=== PATIENT | female | born 1965 | race Caucasian/White ===

== ENCOUNTER 2016-08-07 21:28 | Inpatient (IN) ==
[2016-08-07] MEDS ORDERED: methylPREDNISolone 125 MG/2 ML VIAL IV ONE (21:47)
[2016-08-07] MEDS ORDERED: Ipratropium/Albuterol Neb 3 ML IH ONE (21:47)
[2016-08-07] MEDS ORDERED: Aspirin 325 MG TABLET PO ONE (21:48)
--- NOTE | 2016-08-07 21:52 | Emergency Department Note ---
Disposition Clinical Impression: Acute exacerbation of chronic obstructive airways disease, Community acquired pneumonia, Hypoxia Disposition: Admitted As Inpatient Condition: Good Forms: ED Satisfaction Letter Time of Disposition: 00:26 SOB HPI - General Chief Complaint: ED Shortness of Breath/Dyspnea Stated Complaint: "Poss. Pneumonia/SOB" Time Seen by Provider: 08/07/16 21:46 Source: patient Mode of arrival: ambulatory Limitations: no limitations Nursing Notes Reviewed: Yes Vital Signs Reviewed: Yes - History of Present Illness This is a 50-year-old female presents who presents with increased shortness of breath and cough. Patient states she has been sick for a few days now. Patient wears 2 L of oxygen at night but is not wearing oxygen during the day. Patient is a smoker and does have COPD. Patient does not have a history of CHF or any cardiac stents placed. Patient has been running a fever as well. Patient states her chest feels tight and the pain from her ribs goes into her back. Pt Subjective Complaint: shortness of breath, cough, pain with inspiration Onset (ago): day(s) Severity: moderate Consistency/Duration: constant - Related Data Previous Rx's Medication Instructions Recorded Dicyclomine [Bentyl] 20 mg PO BID #20 capsule 01/02/15 Ondansetron ODT [Zofran ODT] 4 mg SL Q6HR #20 tab.rapdis 01/02/15 Allergies Allergy/AdvReac Type Severity Reaction Status Date / Time naproxen [From Aleve] AdvReac Hives Verified 08/07/16 21:35 All systems ED: reviewed and negative except as stated. Constitutional: Denies: fever, chills, weakness, weight change Eyes: Denies: eye pain, eye discharge, vision change ENT ED: Denies: ear pain, throat pain, dental pain, hearing loss, epistaxis, congestion, dysphagia Cardiovascular: Reports: chest pain. Denies: palpitations, dyspnea on exertion , edema, syncope Respiratory: Reports: cough, dyspnea, wheezes. Denies: hemoptysis, stridor Gastrointestinal: Denies: abdominal pain, nausea, vomiting, diarrhea, constipation, hematemesis, melena, hematochezia Genitourinary: Denies: dysuria, frequency, hematuria, discharge Musculoskeletal: Denies: back pain, neck pain, arthralgia, myalgia Integumentary: Denies: rash, abrasion, lesions Neurological: Denies: headache, weakness, numbness, paresthesias, confusion, abnormal gait, vertigo Psychiatric: Denies: anxiety, depression, suicidal thoughts, homicidal thoughts , auditory hallucinations, visual hallucinations Endocrine: Denies: fatigue Hematological/Lymphatic: Denies: easy bleeding, easy bruising Allergic/Immunologic: Denies: facial swelling, urticaria Past Medical History - Past Medical History Attestation: Yes The following information was validated with the patient. Source: patient Medical history: Reports: asthma, COPD, GERD, other Surgical history: Reports: other Psychiatric history: Reports: anxiety, depression - Social History Smoking Status: Current every day smoker Alcohol use: Reports: none Drug use: Reports: none Physical Exam - General Limitations: no limitations General appearance: alert, in no apparent distress - Head Head exam: atraumatic, normocephalic, normal inspection - Eye Eye exam: Present: normal appearance, PERRL, EOMI - ENT ENT exam: normal exam, normal oropharynx, mucous membranes moist - Expanded ENT Exam External ear exam: Present: normal external inspection Mouth exam: Present: normal external inspection Teeth exam: Present: normal inspection Throat exam: Present: normal inspection - Neck Neck exam: Present: normal inspection, full ROM, trachea midline - Chest Chest inspection: Present: normal inspection, symmetric chest wall rise - Respiratory Respiratory exam: Present: wheezes, other (rhonchi) - Cardiovascular Cardiovascular exam: Present: normal rhythm, tachycardia, normal heart sounds - Abdominal Exam Abdominal exam: Present: soft, Non-Tender. Absent: tenderness, distention, guarding, rebound, rigidity - Extremities Exam Extremities exam: Present: normal inspection, full ROM. Absent: tenderness, pedal edema - Expanded Upper Extremity Exam Shoulder exam: Present: normal inspection, full ROM Arm exam: Present: normal inspection, full ROM Elbow exam: Present: normal inspection, full ROM Forearm/Wrist exam: Present: normal inspection, full ROM Hand exam: Present: normal inspection, full ROM Vascular exam: Normal: capillary refill, radial pulse - Expanded Lower Extremity Exam Hip/Pelvis exam: Present: normal inspection, full ROM Upper leg exam: Present: normal inspection, full ROM Knee exam: Present: normal inspection, full ROM Lower leg exam: Present: normal inspection, full ROM Ankle exam: Present: normal inspection, full ROM Foot/toe exam: Present: normal inspection, full ROM Neurovascular/Tendon exam: Absent: motor deficit, sensory deficit, tendon deficit - Back Exam Back exam: Present: normal inspection, full ROM. Absent: tenderness - Neurological Exam Neurological exam: Present: alert, oriented X3 - Expanded Neurological Exam Patient oriented to: Present: person, place, time Coma Scale Eye Opening: Spontaneous Coma Scale Motor Response: Obeys Commands Coma Scale Verbal Response: Oriented Coma Scale Total: 15 - Psychiatric Psychiatric exam: Present: normal affect, normal mood - Skin Skin exam: Present: warm, dry, intact, normal color Course - Consultations Consultation #1: I spoke with Dr. John hayden to admit. Time: 00:26 Vital Signs Temperature 103.1 F H 08/07/16 21:31 Pulse Rate 134 08/07/16 21:31 Respiratory Rate 30 08/07/16 21:31 Blood Pressure 125/85 08/07/16 21:31 O2 Sat by Pulse Oximetry 93 L 08/07/16 21:31 Temperature 103.1 F H 08/07/16 21:31 Pulse Rate 134 08/07/16 21:31 Respiratory Rate 18 08/07/16 23:40 Blood Pressure 125/85 08/07/16 21:31 O2 Sat by Pulse Oximetry 97 08/07/16 23:40 Oxygen Delivery Oxygen Delivery Nasal Cannula Shortness of Breath/Dyspnea - Medical Records Medical records reviewed: Yes I reviewed the patient's medical records. - Lab Data Lab results reviewed: Yes I reviewed the patient's lab results. Result diagrams: 08/07/16 22:11 08/07/16 22:11 Lab Results 08/07/16 08/07/16 08/07/16 Range/Units 22:11 22:11 22:11 WBC 6.9 (4.3-11.1) K/mcL RBC 4.57 (3.82-4.97) M/mcL Hgb 13.3 (11.5-15.4) g/dL Hct 41.8 (35.3-44.9) % MCV 91.5 (83.0-100.0) fL MCH 29.1 (28.0-33.3) pg MCHC 31.8 (31.6-35.5) g/dL RDW 13.1 (11.5-14.5) % Plt Count 200 (140-400) K/mcL MPV 10.1 (9.4-12.4) fL Immature Gran % 0.3 (0-4) % Seg Neutrophils % 74.4 % Lymphocytes % 17.5 % Monocytes % 7.5 % Eosinophils % 0.0 % Basophils % 0.3 % Neutrophils # 5.2 (1.6-8.9) K/mcL Lymphocytes # 1.2 (0.6-4.6) K/mcL Monocytes # 0.5 (0.0-1.3) K/mcL Eosinophils # 0.0 (0.0-0.6) K/mcL Basophils # 0.0 (0.0-0.2) K/mcL Immature Plt Fraction 3.1 (1.1-6.1) % PT 12.4 H (9.4-12.1) Seconds INR 1.1 APTT 36.0 (26.0-36.0) Seconds D-Dimer 703 H (0-500) ng/mLFEU ABG pH (7.32-7.45) pH Units ABG pCO2 (35-45) mmHg ABG pO2 (85-104) mmHg ABG HCO3 (21-27) mEQ/L ABG Total CO2 (20-26) mEq/L ABG O2 Saturation (95-98) % ABG Base Excess (-2.0 to 3.0) mEq/L Blood Gas Modality Inspired O2 % Sodium 138 (136-145) mEq/L Potassium 3.5 (3.5-4.5) mEq/L Chloride 101 (98-109) mEq/L Carbon Dioxide 26 (19-29) mEq/L BUN 14 (7-20) mg/dL Creatinine 0.80 (0.57-1.11) mg/dL Est GFR ( Amer) > 60 (> 60) Est GFR (Non-Af Amer) > 60 (> 60) BUN/Creatinine Ratio 18 (6-26) Glucose 106 H (70-99) mg/dL Calculated Osmolality 287 (280-300) Lactic Acid (0.5-2.2) mmol/L Calcium 9.0 (8.6-10.8) mg/dL Troponin I (0-0.03) ng/mL B-Natriuretic Peptide (0-100) pg/mL 08/07/16 08/07/16 08/07/16 Range/Units 22:11 22:11 22:11 WBC (4.3-11.1) K/mcL RBC (3.82-4.97) M/mcL Hgb (11.5-15.4) g/dL Hct (35.3-44.9) % MCV (83.0-100.0) fL MCH (28.0-33.3) pg MCHC (31.6-35.5) g/dL RDW (11.5-14.5) % Plt Count (140-400) K/mcL MPV (9.4-12.4) fL Immature Gran % (0-4) % Seg Neutrophils % % Lymphocytes % % Monocytes % % Eosinophils % % Basophils % % Neutrophils # (1.6-8.9) K/mcL Lymphocytes # (0.6-4.6) K/mcL Monocytes # (0.0-1.3) K/mcL Eosinophils # (0.0-0.6) K/mcL Basophils # (0.0-0.2) K/mcL Immature Plt Fraction (1.1-6.1) % PT (9.4-12.1) Seconds INR APTT (26.0-36.0) Seconds D-Dimer (0-500) ng/mLFEU ABG pH (7.32-7.45) pH Units ABG pCO2 (35-45) mmHg ABG pO2 (85-104) mmHg ABG HCO3 (21-27) mEQ/L ABG Total CO2 (20-26) mEq/L ABG O2 Saturation (95-98) % ABG Base Excess (-2.0 to 3.0) mEq/L Blood Gas Modality Inspired O2 % Sodium (136-145) mEq/L Potassium (3.5-4.5) mEq/L Chloride (98-109) mEq/L Carbon Dioxide (19-29) mEq/L BUN (7-20) mg/dL Creatinine (0.57-1.11) mg/dL Est GFR ( Amer) (> 60) Est GFR (Non-Af Amer) (> 60) BUN/Creatinine Ratio (6-26) Glucose (70-99) mg/dL Calculated Osmolality (280-300) Lactic Acid 0.8 (0.5-2.2) mmol/L Calcium (8.6-10.8) mg/dL Troponin I 0.00 (0-0.03) ng/mL B-Natriuretic Peptide 11 (0-100) pg/mL 08/07/16 Range/Units 23:44 WBC (4.3-11.1) K/mcL RBC (3.82-4.97) M/mcL Hgb (11.5-15.4) g/dL Hct (35.3-44.9) % MCV (83.0-100.0) fL MCH (28.0-33.3) pg MCHC (31.6-35.5) g/dL RDW (11.5-14.5) % Plt Count (140-400) K/mcL MPV (9.4-12.4) fL Immature Gran % (0-4) % Seg Neutrophils % % Lymphocytes % % Monocytes % % Eosinophils % % Basophils % % Neutrophils # (1.6-8.9) K/mcL Lymphocytes # (0.6-4.6) K/mcL Monocytes # (0.0-1.3) K/mcL Eosinophils # (0.0-0.6) K/mcL Basophils # (0.0-0.2) K/mcL Immature Plt Fraction (1.1-6.1) % PT (9.4-12.1) Seconds INR APTT (26.0-36.0) Seconds D-Dimer (0-500) ng/mLFEU ABG pH 7.34 (7.32-7.45) pH Units ABG pCO2 55 H (35-45) mmHg ABG pO2 70 L (85-104) mmHg ABG HCO3 29.7 H (21-27) mEQ/L ABG Total CO2 31.4 H (20-26) mEq/L ABG O2 Saturation 93 L (95-98) % ABG Base Excess 2.8 (-2.0 to 3.0) mEq/L Blood Gas Modality [place] Inspired O2 40 % Sodium (136-145) mEq/L Potassium (3.5-4.5) mEq/L Chloride (98-109) mEq/L Carbon Dioxide (19-29) mEq/L BUN (7-20) mg/dL Creatinine (0.57-1.11) mg/dL Est GFR ( Amer) (> 60) Est GFR (Non-Af Amer) (> 60) BUN/Creatinine Ratio (6-26) Glucose (70-99) mg/dL Calculated Osmolality (280-300) Lactic Acid (0.5-2.2) mmol/L Calcium (8.6-10.8) mg/dL Troponin I (0-0.03) ng/mL B-Natriuretic Peptide (0-100) pg/mL - Radiology Data Radiology results reviewed: Yes I reviewed the patient's radiology results. - EKG Data EKG attestation: Yes I reviewed and interpreted this EKG. EKG shows normal: Reports: sinus rhythm Rate: Reports: tachycardia (117) Rhythm: Reports: NSR Vancleve/QRS: Reports: normal Interpretation: Reports: no acute changes, normal EKG
[2016-08-07 22:23] LABS: Basophils % 0.3 %; Hematocrit 41.8 % (35.3-44.9); Hemoglobin 13.3 g/dL (11.5-15.4); Immature Granulocytes % 0.3 % (0-4); Immature Platelets 3.1 % (1.1-6.1); Lymphocytes # 1.2 K/mcL (0.6-4.6); Lymphocytes % 17.5 %; Mean Corpuscular HGB Conc 31.8 g/dL (31.6-35.5); Mean Corpuscular Hemoglobin 29.1 pg (28.0-33.3); Mean Corpuscular Volume 91.5 fL (83.0-100.0); Mean Platelet Volume 10.1 fL (9.4-12.4); Monocytes # 0.5 K/mcL (0.0-1.3); Monocytes % 7.5 %; Neutrophils # 5.2 K/mcL (1.6-8.9); Platelet Count 200 K/mcL (140-400); Red Blood Count 4.57 M/mcL (3.82-4.97); Red Cell Distribution Width 13.1 % (11.5-14.5); Segmented Neutrophils % 74.4 %
[2016-08-07 22:27] LABS: INR 1.1; Prothrombin Time 12.4 Seconds (9.4-12.1)
[2016-08-07 22:37] LABS: BUN/Creatinine Ratio 18 (6-26); Blood Urea Nitrogen 14 mg/dL (7-20); Carbon Dioxide 26 mEq/L (19-29); Chloride 101 mEq/L (98-109); Glucose 106 mg/dL (70-99); Osmolality,Calculated 287 (280-300); Potassium 3.5 mEq/L (3.5-4.5); Sodium 138 mEq/L (136-145); eGFR For African Americans > 60 (> 60); eGFR For Non-African Americans > 60 (> 60)
[2016-08-07 23:52] LABS: ABG Base Excess 2.8 mEq/L (-2.0 to 3.0); ABG HCO3 29.7 mEQ/L (21-27); ABG Oxygen Saturation 93 % (95-98); ABG PCO2 55 mmHg (35-45); ABG PH 7.34 pH Units (7.32-7.45); ABG PO2 70 mmHg (85-104); ABG TCO2 31.4 mEq/L (20-26)
[2016-08-07 23:53] LABS: Blood Gas FiO2 40 %
[2016-08-08] MEDS ORDERED: Levofloxacin 750 MG/150 ML 750 MG/150 ML BAG IVPB ONE (00:01)
[2016-08-08] MEDS ORDERED: *HR* OxyCODONE/APAP 10/325 TABLET PO ONE (01:28)
[2016-08-08] MEDS: 0.9 % Sodium Chloride 2,000 ML IV SCH (02:33)
[2016-08-08] MEDS: GuaiFENesin Liq 200 MG/10 ML UDC PO PRN ×3 (04:30→16:58)
[2016-08-08] MEDS ORDERED: Acetaminophen 325 MG TABLET PO PRN (05:24)
--- NOTE | 2016-08-08 05:41 | Internal Med History&Physical ---
Date of Encounter: 08/08/16 Time of Encounter: 05:15 Assessment and Plan (1) Sepsis Current visit: Yes Status: Acute Patient is febrile, tachycardic, tachypneic, and hypoxic. White count is normal. Possible source of infection respiratory given possible infection/ inflammation seen on chest CT. Patient received 2 L fluid bolus normal saline in the emergency room Continue normal saline with 25 mL an hour Obtain blood cultures Lactic acid was normal We will have scheduled and as needed DuoNeb's Levaquin 750 mg daily Solu-Medrol 40 mg every 6 hours We will obtain final respiratory panel Obtain sputum culture Strep and legionella antigens Continuous pulse oximetry Cardiac monitoring We will consult social worker psychiatric for assistance with patient life stressors Qualifiers: Sepsis type: sepsis due to unspecified organism Qualified Code(s): A41.9 - Sepsis, unspecified organism (2) Bronchiolitis Current visit: Yes Status: Acute Chest CT negative for PE, but did reveal possible infection/inflammation right lung. It is concerning for bronchiolitis or developing infection. Plan as above (3) Acute exacerbation of chronic obstructive airways disease Current visit: Yes Status: Acute History of COPD, exacerbated currently by likely infection as seen on CT. Reports continued smoking As needed nicotine patch Plan as above (4) Hypoxia Current visit: Yes Status: Acute Plan as above (5) DVT prophylaxis Current visit: Yes Status: Acute 5000 units heparin subcutaneous 3 times a day Internal Medicine - H&P: HPI Chief complaint: Increased cough, shortness of breath, and chest pain Admitted From: Home Plans for Post Hospital Care: Home History of present illness: Ms. Pratt is a 50 year old female with significant medical history for COPD, GERD, asthma, and previous choledochal cyst with surgical complications who presented to [facility] last night due to progressive cough, shortness of breath, chest pain after 3 days. She states discomfort finally got great enough for her to present to the hospital. She reports she is having cough for 3 days, has been getting worse. She reports that her cough has been productive of thick , yellowish sputum. She states with her cough she has also developed some chest pain located under her ribs in her back, this chest pain only occurs when coughing and described as sharp in character. She states this chest pain occurred the last time she had pneumonia and is similar. She states that she had a fever at home of 104. She does deny hemoptysis. She says she is short of breath, had a headache, had nausea/vomiting (productive phlegm), and abdominal pain (for her chronic abdominal pain given her surgical complications , but worsened by her cough). Past Med Surg Social Fam HX - Past Medical History Medical history: asthma, COPD, GERD, other Psychiatric history: anxiety, depression, PTSD - Past Surgical History Surgical History: other - Social History Smoking Status: Current every day smoker Packs per day: 0.5 Smokeless Tobacco Status: No Alcohol use: none Drug use: none Internal Medicine - H&P: Meds Dicyclomine [Bentyl] 20 mg PO BID #20 capsule 01/02/15 [Rx] Ondansetron ODT [Zofran ODT] 4 mg SL Q6HR #20 tab.rapdis 01/02/15 [Rx] Gabapentin [Neurontin] 300 mg PO DAILY 08/08/16 [History] Gabapentin [Neurontin] 600 mg PO HS 08/08/16 [History] Klonopin 0.5 mg PO BID 08/08/16 [History] Percocet 10-325 mg Tablet 10 mg PO Q6HR PRN 08/08/16 [History] Remeron 45 mg PO HS 08/08/16 [History] Allergies naproxen [From Aleve] Adverse Reaction (Verified 08/07/16 21:35) Hives - Constitutional Constitutional: chills, fever(s), weakness, no fatigue - EENT Nose, mouth and throat: no dysphagia, no nasal discharge, no neck pain, no sore throat - Cardiovascular Cardiovascular ROS IM: as per HPI, chest pain, dyspnea, no diaphoresis, no lightheadedness, no orthopnea, no palpitations - Respiratory Respiratory: as per HPI, cough, dyspnea, change in phlegm color, pain with cough , no hemoptysis, no pain on inspiration - Gastrointestinal Gastrointestinal: as per HPI, abdominal pain, diarrhea, nausea, vomiting, no constipation, no hematemesis, no hematochezia, no melena - Genitourinary Genitourinary: no dysuria, no hematuria - Musculoskeletal Musculoskeletal ROS IM: no numbness, no tingling - Neurological Neurological ROS: headache(s), no confusion, no convulsions, no focal weakness, no numbness, no tingling, no tremor(s) - Constitutional Vitals: Temp Pulse Resp BP Pulse Ox 98.4 F 123 26 103/64 95 08/08/16 02:18 08/08/16 01:29 08/08/16 02:18 08/08/16 02:18 08/08/16 02:27 Exam: General: Cooperative, pleasant, no acute distress, alert and oriented 3, answers questions appropriately, somnolent (having just taking cough medicine) Head: Normocephalic, atraumatic Eye: Conjunctiva pink, sclera anicteric, EOMI, PERRL Neck: Supple, trachea midline Respiratory: No accessory muscle usage, slight Rales auscultated right lower lobe Cardiovascular: Tachycardia, regular rhythm, S1 and S2 present, no murmurs/rubs/ gallops/clicks appreciated GI/abdominal: Nondistended, tenderness to palpation in right middle region ( normal for her), large midline scar, smaller scar in right upper quadrant, soft , normal bowel sounds, no peritoneal signs Extremities: No calf tenderness, noncyanotic, no pedal edema appreciated, warm, lower extremity pulses palpable and symmetrical Neurological: Alert and oriented 3, no facial droop, no focal deficits Skin: Dry, intact, normal color Internal Med - H&P Results - Labs CBC & Chem 7: 08/07/16 22:11 08/07/16 22:11 - Impressions Impressions Chest X-Ray 08/07/16 21:47 IMPRESSION: No acute cardiopulmonary disease. D/ / Nilo Lamas MD / Nilo Lamas MD Interpreting Provider: Nilo Lamas MD Chest CTA 08/07/16 23:06 IMPRESSION: 1. No evidence of pulmonary embolism. 2. Minimal branching opacities in right upper lobe and right lower lobe suspicious for infectious or inflammatory small airway disease. D/ / Bobby Tavares MD / Bobby Tavares MD Interpreting Provider: Bobby Tavares MD
[2016-08-08] MEDS ORDERED: Ondansetron 4 MG/2 ML VIAL IVP PRN (05:42)
[2016-08-08] MEDS ORDERED: Naloxone 0.4 MG/ML INJ IVP PRN (05:42)
[2016-08-08] MEDS ORDERED: Nicotine 7 MG PATCH.TD24 TD PRN (05:42)
[2016-08-08] MEDS: 0.9 % Sodium Chloride 1,000 ML IVC SCH ×2 (05:46→14:05)
[2016-08-08] MEDS ORDERED: Ipratropium/Albuterol Neb 3 ML IH PRN (05:49)
[2016-08-08 07:19] LABS: Hematocrit 38.8 % (35.3-44.9); Hemoglobin 12.2 g/dL (11.5-15.4); Immature Granulocytes % 0.3 % (0-4); Lymphocytes # 0.5 K/mcL (0.6-4.6); Lymphocytes % 6.9 %; Mean Corpuscular HGB Conc 31.4 g/dL (31.6-35.5); Mean Corpuscular Hemoglobin 29.3 pg (28.0-33.3); Mean Corpuscular Volume 93.3 fL (83.0-100.0); Mean Platelet Volume 10.3 fL (9.4-12.4); Monocytes # 0.1 K/mcL (0.0-1.3); Monocytes % 1.8 %; Neutrophils # 6.4 K/mcL (1.6-8.9); Platelet Count 192 K/mcL (140-400); Red Blood Count 4.16 M/mcL (3.82-4.97); Red Cell Distribution Width 13.2 % (11.5-14.5)
[2016-08-08 07:28] LABS: Alanine Aminotransferase 31 Units/L (0-55); Albumin 2.9 g/dL (3.5-5.0); Albumin/Globulin Ratio 0.8 (1.1-2.2); Alkaline Phosphatase 111 Units/L (38-126); Aspartate Amino Transferase 30 Units/L (5-34); BUN/Creatinine Ratio 15 (6-26); Bilirubin,Total 0.1 mg/dL (0.2-1.2); Blood Urea Nitrogen 12 mg/dL (7-20); Calcium 8.2 mg/dL (8.6-10.8); Carbon Dioxide 23 mEq/L (19-29); Chloride 109 mEq/L (98-109); Globulin 3.7 g/dL (2.4-3.5); Glucose 155 mg/dL (70-99); Magnesium 1.6 mg/dL (1.6-2.6); Osmolality,Calculated 293 (280-300); Phosphorous 2.4 mg/dL (2.3-4.7); Sodium 140 mEq/L (136-145); Total Protein 6.6 g/dL (6.0-8.3); eGFR For African Americans > 60 (> 60); eGFR For Non-African Americans > 60 (> 60)
[2016-08-08 07:32] LABS: Potassium 4.6 mEq/L (3.5-4.5)
[2016-08-08] MEDS: MethylPREDNISolone 40 MG/ML VIAL IVP SCH ×4 (07:35→22:17)
[2016-08-08] MEDS: *HR* Heparin 5,000 UNIT/ML VIAL SQ SCH ×3 (07:36→22:16)
[2016-08-08] MEDS ORDERED: predniSONE 20 MG TABLET PO SCH (09:00)
[2016-08-08] MEDS ORDERED: Gabapentin 300 MG CAPSULE PO SCH (09:00)
[2016-08-08] MEDS: clonazePAM 0.5 MG TABLET PO SCH ×2 (10:03→22:14)
[2016-08-08] MEDS: *HR* OxyCODONE/APAP 10/325 TABLET PO PRN ×2 (10:52→16:54)
[2016-08-08] MEDS: Ipratropium/Albuterol Neb 3 ML IH SCH ×3 (15:23→21:47)
[2016-08-08] MEDS: Mirtazapine 15 MG TABLET PO SCH (16:08)
--- NOTE | 2016-08-08 18:48 | Event Note ---
Date of Encounter: 08/08/16 Time of Encounter: 18:44 seen and examined chart reviewed. Admitted for possible sepsis. patient is known to have a chronic obstructive pulmonary disease Presently patient is being treated for exacerbation of COPD. will continue IV antibiotics, intravenous steroids and bronchodilators.
[2016-08-08 19:26] LABS: Adenovirus Not Detected (Not Detect); Bordetella Pertussis Not Detected (Not Detect); Chlamydophila pneumoniae Not Detected (Not Detect); Coronavirus 229E Not Detected (Not Detect); Coronavirus HKU1 Not Detected (Not Detect); Coronavirus NL63 Not Detected (Not Detect); Coronavirus OC43 Not Detected (Not Detect); Human Metapneumovirus Not Detected (Not Detect); Human Rhinovirus/Enterovirus Not Detected (Not Detect); Influenza A Subtype 2009 H1 Not Detected (Not Detect); Influenza A Untypeable Not Detected (Not Detect); Mycoplasma pneumoniae Not Detected (Not Detect); Parainfluenza Virus 1 Not Detected (Not Detect); Parainfluenza Virus 2 Not Detected (Not Detect); Parainfluenza Virus 3 Not Detected (Not Detect); Parainfluenza Virus 4 Not Detected (Not Detect); Respiratory Syncytial Virus Not Detected (Not Detect)
[2016-08-08 19:34] LABS: Influenza B ***DETECTED*** (Not Detect)
[2016-08-08] MEDS: Gabapentin 300 MG CAPSULE PO SCH (22:13)
[2016-08-09] MEDS: *HR* OxyCODONE/APAP 10/325 TABLET PO PRN ×4 (00:12→20:46)
[2016-08-09] MEDS: GuaiFENesin Liq 200 MG/10 ML UDC PO PRN ×2 (00:12→06:40)
[2016-08-09] MEDS: 0.9 % Sodium Chloride 1,000 ML IVC SCH ×3 (00:15→17:27)
[2016-08-09] MEDS ORDERED: *HR* Morphine 2 MG/ML SYRINGE IV ONE (04:13)
[2016-08-09] MEDS ORDERED: Dextromethorphan Polistrx(12h) 30 MG/5 ML UDC PO PRN (04:13)
[2016-08-09] MEDS: Ipratropium/Albuterol Neb 3 ML IH SCH ×4 (04:30→22:41)
[2016-08-09] MEDS: MethylPREDNISolone 40 MG/ML VIAL IVP SCH ×3 (04:31→15:51)
[2016-08-09] MEDS: *HR* Heparin 5,000 UNIT/ML VIAL SQ SCH ×3 (04:31→20:47)
[2016-08-09] MEDS: Levofloxacin 750 MG/150 ML 750 MG/150 ML BAG IVPB SCH (04:32)
--- NOTE | 2016-08-09 08:16 | Electrocardiograph Report ---
[place] [id number] Test Date: 2016-08-07 Pat Name: Nuria Pratt Department: 103 Room: 2A Gender: F Maintenance Planner: [facility] : 1965 Requested By: Maxime Quiroga Order Number: [id number] Reading MD: Lenin Sun MD Measurements Intervals [place] Rate: 117 P: 63 MO: 133 QRS: 31 QRSD: 84 T: 66 QT: 298 QTc: 367 Interpretive Statements SINUS TACHYCARDIA BASELINE ARTIFACT Electronically Signed On 08-09-2016 8:14:34 EDT by Lenin Sun MD
[2016-08-09] MEDS: 0.9 % Sodium Chloride 2,000 ML IV SCH (08:48)
[2016-08-09] MEDS: Gabapentin 100 MG CAPSULE PO SCH (08:49)
[2016-08-09] MEDS: Mirtazapine 15 MG TABLET PO SCH (08:49)
[2016-08-09] MEDS: clonazePAM 0.5 MG TABLET PO SCH ×2 (08:49→20:45)
[2016-08-09 10:38] LABS: Hematocrit 37.2 % (35.3-44.9); Hemoglobin 11.8 g/dL (11.5-15.4); Immature Granulocytes % 0.6 % (0-4); Lymphocytes # 1.1 K/mcL (0.6-4.6); Lymphocytes % 10.6 %; Mean Corpuscular HGB Conc 31.7 g/dL (31.6-35.5); Mean Corpuscular Hemoglobin 29.6 pg (28.0-33.3); Mean Corpuscular Volume 93.2 fL (83.0-100.0); Monocytes # 0.5 K/mcL (0.0-1.3); Monocytes % 4.7 %; Platelet Count 185 K/mcL (140-400); Red Blood Count 3.99 M/mcL (3.82-4.97); Red Cell Distribution Width 13.2 % (11.5-14.5); Segmented Neutrophils % 84.1 %
[2016-08-09 10:39] LABS: Neutrophils # 9.1 K/mcL (1.6-8.9)
[2016-08-09] MEDS: Budesonide/Formoterol 80/4.5 MDI IH SCH (10:44)
[2016-08-09 10:49] LABS: BUN/Creatinine Ratio 14 (6-26); Blood Urea Nitrogen 9 mg/dL (7-20); Calcium 8.4 mg/dL (8.6-10.8); Carbon Dioxide 23 mEq/L (19-29); Chloride 111 mEq/L (98-109); Glucose 146 mg/dL (70-99); Osmolality,Calculated 297 (280-300); Potassium 3.6 mEq/L (3.5-4.5); Sodium 143 mEq/L (136-145); eGFR For African Americans > 60 (> 60); eGFR For Non-African Americans > 60 (> 60)
[2016-08-09] MEDS ORDERED: *HR* LORazepam 0.5 MG TABLET PO PRN (11:28)
[2016-08-09] MEDS ORDERED: Albuterol 2.5 MG/3 ML NEBULIZER IH PRN (11:33)
--- NOTE | 2016-08-09 17:16 | Internal Med Progress Note ---
Date of Encounter: 08/08/16 Time of Encounter: 17:13 - Assessment and plan (1) Acute exacerbation of chronic obstructive airways disease Current Visit: Yes Status: Acute Assessment and plan: cureently stable and satiing 95% on 2 L. Continue to titrate oxygen to maintain saturation 88-92%. Continue doing given nebs, Symbicort and methylprednisone for now. Patient seems to be hyperventilating with a respiratory rate 30s, does not have much wheezing and sats are maintained, has history of anxiety, we will add Ativan along with the Klonopin. CXR shows no pneumonia, CTA with no PE. (2) Bronchiolitis Current Visit: Yes Status: Acute Assessment and plan: CTA shows possible infection/inflammation of small airways. positive for PCR influenza B will treat with tamiflu and levoflox for now. continue the steroids given small airways disease as evident on the CT chest. will gradually taper steroids. (3) Flu Current Visit: Yes Status: Acute Assessment and plan: treat with tamiflu. continue supportive tx, continue IVF , antiemetics and analgesics. - Time Spent With Patient 25 - 35 minutes - Subjective Interval history: Patient seen at the bedside, appeared very anxious, complains of worsening cough. Also complains of generalized weakness and body aches. One episode of vomiting in the morning, complains of mild nausea. No fever today. - Constitutional Vitals: Temp Pulse Resp BP Pulse Ox 98.0 F 75 24 112/69 96 08/09/16 15:29 08/09/16 15:29 08/09/16 15:29 08/09/16 15:29 08/09/16 15:29 General appearance: Present: mild distress, A&O X 3 Exam: Head: Normocephalic, atraumatic Eye: Conjunctiva pink, sclera anicteric, EOMI, PERRL Neck: Supple, trachea midline Respiratory: No accessory muscle usage, minimal wheezing. Cardiovascular: Tachycardia, regular rhythm, S1 and S2 present, no murmurs/rubs/ gallops/clicks appreciated GI/abdominal: Nondistended, tenderness to palpation in right middle region ( normal for her), large midline scar, smaller scar in right upper quadrant, soft , normal bowel sounds, no peritoneal signs Extremities: No calf tenderness, noncyanotic, no pedal edema appreciated, warm, lower extremity pulses palpable and symmetrical Neurological: Alert and oriented 3, no facial droop, no focal deficits Skin: Dry, intact, normal color Internal Medicine: Result - Labs CBC & Chem 7: 08/09/16 10:32 08/09/16 10:32 Labs: Short CBC 08/09/16 Range/Units 10:32 WBC 10.8 D (4.3-11.1) K/mcL Hgb 11.8 (11.5-15.4) g/dL Hct 37.2 (35.3-44.9) % Plt Count 185 (140-400) K/mcL Neutrophils # 9.1 H (1.6-8.9) K/mcL BMP 08/09/16 10:32 Sodium 143 Potassium 3.6 D Chloride 111 H Carbon Dioxide 23 BUN 9 Creatinine 0.65 Glucose 146 H Calcium 8.4 L - ABG Interpretation ABG results: ABG ABG pH 7.34 pH Units (7.32-7.45) 08/07/16 23:44 ABG pCO2 55 mmHg (35-45) H 08/07/16 23:44 ABG pO2 70 mmHg (85-104) L 08/07/16 23:44 ABG O2 Saturation 93 % (95-98) L 08/07/16 23:44 PT/INR, D-dimer PT 12.4 Seconds (9.4-12.1) H 08/07/16 22:11 D-Dimer 703 ng/mLFEU (0-500) H 08/07/16 22:11 Consult Discharge Plan - Plan Referrals: Musa Ellsworth MD [Primary Care Provider] - (web request sent on 08/09/16)
[2016-08-09] MEDS: Gabapentin 300 MG CAPSULE PO SCH (20:46)
[2016-08-10] MEDS: MethylPREDNISolone 40 MG/ML VIAL IVP SCH ×2 (00:39→09:09)
[2016-08-10] MEDS: Levofloxacin 750 MG/150 ML 750 MG/150 ML BAG IVPB SCH (00:40)
[2016-08-10] MEDS: *HR* OxyCODONE/APAP 10/325 TABLET PO PRN ×3 (02:56→11:30)
[2016-08-10] MEDS: 0.9 % Sodium Chloride 1,000 ML IVC SCH (03:07)
[2016-08-10] MEDS: Ipratropium/Albuterol Neb 3 ML IH SCH ×2 (03:53→10:52)
[2016-08-10] MEDS: *HR* Heparin 5,000 UNIT/ML VIAL SQ SCH (05:08)
[2016-08-10 08:25] LABS: Basophils % 0.2 %; Hematocrit 35.3 % (35.3-44.9); Hemoglobin 11.4 g/dL (11.5-15.4); Immature Granulocytes % 1.3 % (0-4); Lymphocytes % 10.2 %; Mean Corpuscular HGB Conc 32.3 g/dL (31.6-35.5); Mean Corpuscular Hemoglobin 30.1 pg (28.0-33.3); Mean Corpuscular Volume 93.1 fL (83.0-100.0); Mean Platelet Volume 10.7 fL (9.4-12.4); Monocytes # 0.5 K/mcL (0.0-1.3); Monocytes % 4.6 %; Neutrophils # 8.4 K/mcL (1.6-8.9); Platelet Count 197 K/mcL (140-400); Red Blood Count 3.79 M/mcL (3.82-4.97); Red Cell Distribution Width 13.7 % (11.5-14.5); Segmented Neutrophils % 83.7 %
[2016-08-10 08:36] LABS: BUN/Creatinine Ratio 15 (6-26); Blood Urea Nitrogen 9 mg/dL (7-20); Calcium 8.6 mg/dL (8.6-10.8); Carbon Dioxide 25 mEq/L (19-29); Chloride 110 mEq/L (98-109); Glucose 124 mg/dL (70-99); Osmolality,Calculated 298 (280-300); Potassium 3.9 mEq/L (3.5-4.5); Sodium 144 mEq/L (136-145); eGFR For African Americans > 60 (> 60); eGFR For Non-African Americans > 60 (> 60)
[2016-08-10] MEDS: clonazePAM 0.5 MG TABLET PO SCH (09:08)
[2016-08-10] MEDS: Mirtazapine 15 MG TABLET PO SCH (09:08)
[2016-08-10] MEDS: Gabapentin 100 MG CAPSULE PO SCH (09:09)
[2016-08-10] MEDS: Budesonide/Formoterol 80/4.5 MDI IH SCH (10:52)
[2016-08-10 11:11] VITALS: BP 128/86
--- NOTE | 2016-08-10 12:37 | Discharge Summary ---
Date of Encounter: 08/08/16 Time of Encounter: 12:35 - Discharge Diagnosis (1) Acute exacerbation of chronic obstructive airways disease Priority: Primary Status: Acute (2) Bronchiolitis Priority: Primary Status: Acute (3) Flu Priority: Primary Status: Acute - Discharge Medications Prescriptions: GuaiFENesin/Dextromethorphan [Robitussin/Dm] 10 ml PO Q6HR PRN 7 Days PRN Reason: Cough Levofloxacin [Levaquin] 750 mg PO DAILY #4 tablet Oseltamivir [Tamiflu] 75 mg PO BID 2 Days PredniSONE See Taper PO DAILY #12 tablet Home Medications: Albuterol Sulfate [Albuterol Inhaler] 1 - 2 puff IH Q4-6H PRN 08/08/16 [History] ClonazePAM [Klonopin] 0.5 mg PO BID 08/08/16 [History] Gabapentin [Neurontin] 300 mg PO DAILY 08/08/16 [History] Gabapentin [Neurontin] 600 mg PO HS 08/08/16 [History] HydrOXYzine 20 mg PO TID 08/08/16 [History] Mirtazapine [Remeron] 45 mg PO DAILY 08/08/16 [History] Mometasone/Formoterol [Dulera 100 Mcg/5 Mcg Inhaler] 1 puff IH DAILY 08/08/16 [ History] Omeprazole [PriLOSEC] 20 mg PO DAILY 08/08/16 [History] OxyCODONE/APAP 10/325 [Percocet 10/325 MG] 1 each PO Q6H PRN 08/08/16 [History] Prazosin HCl [Minipress] 2 mg PO DAILY 08/08/16 [History] GuaiFENesin/Dextromethorphan [Robitussin/Dm] 10 ml PO Q6HR PRN 7 Days 08/10/16 [ Rx] Levofloxacin [Levaquin] 750 mg PO DAILY #4 tablet 08/10/16 [Rx] Oseltamivir [Tamiflu] 75 mg PO BID 2 Days 08/10/16 [Rx] PredniSONE See Taper PO DAILY #12 tablet 08/10/16 [Rx] Allergies/Adverse Reactions: Allergies naproxen [From Aleve] Adverse Reaction (Verified 08/08/16 07:59) Hives Procedures/tests Complete & Pending: Pending Tests Category Date Time Status Culture,Sputum with Gram Stain [RM] Routine Lab 08/08/16 05:42 Incomplete Date of admission: 08/08/16 05:25 Primary care physician: Musa Ellsworth MD Consults: 08/08/16 05:44 Consult to Information Engineer [CONS] Routine Reason for SW Consult: Recent stressors including grand-children custody court hearing Sunday and having a missing child Discharging clinician: Marissa Swenson Anticipated date of discharge: 08/10/16 - Patient Status Disposition: Home, Self-Care Condition: Fair Functional capacity at discharge: independent ambulation Overall status at discharge: patient is back to baseline - Discharge Instructions Instructions: Influenza (GEN), Chronic Obstructive Pulmonary Disease (DC), Pneumonia (DC) Follow Up With: Musa Ellsworth MD [Primary Care Provider] - 08/16/16 1:25 pm (web request sent on 08/09/16) - Diet and Activity Activity: resume usual activities as tolerated Diet: advance to your usual diet Interval History: Ms. Pratt is a 50 year old female with significant medical history for COPD, GERD, asthma, and previous choledochal cyst with surgical complications who presented to [facility] to progressive cough, shortness of breath, chest pain after 3 days. CXR: No acute lesions. D-Dimer was elevated. CTA chest done in the ER showed infectious / inflammatory small airway disease. no PE. she was admitted with the impression of Sepsis / bronchiolitis: treated with levofloxacin, bronchodilators. Resp viral screen was positive for influenza. she was started on tamiflu and she improved clinically with no fever or leucytosis. urine strep antigen was also positive. She remained hemodynamically stable, she is being discharged today on oral Tamiflu to complete 5 days and levofloxacin to complete 7 days. Hospital course: Ms. Pratt is a 50 year old female Time spent discussing smoking cessation with patient: more than 10 minutes - Time Spent with Patient Total time spent providing and/or coordinating discharge services: Greater than 30 minutes - Constitutional Vitals: Temp Pulse Resp BP Pulse Ox 98.1 F 71 17 128/86 96 08/10/16 11:10 08/10/16 11:10 08/10/16 11:10 08/10/16 11:10 08/10/16 11:10 General appearance: Present: A&O X 3, no acute distress Exam: Head: Normocephalic, atraumatic Eye: Conjunctiva pink, sclera anicteric, EOMI, PERRL Neck: Supple, trachea midline Respiratory: No accessory muscle usage, b/l clear Cardiovascular: Tachycardia, regular rhythm, S1 and S2 present, no murmurs/rubs/ gallops/clicks appreciated GI/abdominal: Nondistended, soft, non tender, bs are present Extremities: No calf tenderness, noncyanotic, no pedal edema appreciated, warm, lower extremity pulses palpable and symmetrical Neurological: Alert and oriented 3, no facial droop, no focal deficits Skin: Dry, intact, normal color
[2016-08-10] MEDS ORDERED: predniSONE 20 MG TABLET PO SCH (14:00)
[2016-08-10] MEDS ORDERED: levoFLOXacin 500 MG TABLET PO SCH (19:00)
== END 2016-08-10 13:50 | disposition home or self-care (01) | DRG 140 ==
LOC: EMEROO 21:28 → 2NENU 21:28 → SUATTDRO 08-08 05:25 → 2ANU 08-08 12:49
PROVIDERS: ADMIT Internal Medicine; ATTEND Internal Medicine

== ENCOUNTER 2016-10-18 21:37 | Inpatient (IN) ==
[2016-10-18 22:10] LABS: Bilirubin,Urine Moderate (Negative); Blood,Urine Negative (Negative); Clarity,Urine Cloudy (Clear); Color,Urine Dark Yellow (Yellow); Glucose,Urine (UA) Normal (Normal); Ketones,Urine 40 mg/dL (Negative); Leukocyte Esterase,Urine Negative (Negative); Nitrite,Urine Negative (Negative); PH,Urine 5.5 pH Units (5.0-8.0); Protein,Urine 30 mg/dL (Neg-Trace); Specific Gravity,Urine > 1.030 (1.010-1.025); Urobilinogen,Urine Normal (Normal)
[2016-10-18 22:13] LABS: Bacteria,Urine Few per hpf (None-Few); Hyaline Casts,Urine Few per lpf (None-Few); Squamous Epithelial Cell,Urine Many per lpf (None-Few); WBC,Urine 15-30 per hpf (0-3)
[2016-10-18] MEDS ORDERED: 0.9 % Sodium Chloride 1,000 ML IVC ONE (22:26)
[2016-10-18] MEDS ORDERED: Ondansetron 4 MG/2 ML VIAL IVP ONE (22:31)
[2016-10-18] MEDS ORDERED: *HR* HYDROmorphone (PF) 1 MG/ML SYRINGE IVP ONE (22:31)
--- NOTE | 2016-10-18 22:39 | Emergency Department Note ---
Disposition Clinical Impression: Partial small bowel obstruction Abdominal pain Qualifiers: Abdominal location: lower abdomen, unspecified Qualified Code(s): R10.30 - Lower abdominal pain, unspecified Disposition: Admitted As Inpatient Condition: Good General Adult HPI - General Chief complaint: ED Abdominal Pain Stated complaint: abd pain Time Seen by Provider: 10/18/16 21:55 Source: patient Limitations: no limitations - History of Present Illness HPI Narrative: This is a 50 yo female w/ PMH of COPD, GERD, chronic abdominal pain and an extensive abdominal surgery history to the ER tonight complaing of abdominal pain. She describes it as a diffuse, sharp pain and worst in the lower quadrants. This was associated with two bouts of nonbloody, nonbilious emesis and diarrhea yesterday, but today had x1 normal BM. She denies any alleviating or exacerbating factors. She has limited PO tolerance holding only small amounts of fluid. Still urinating normally. She denies any fevres, chills, SOB , and chest pain. Radiation: non-radiation Pain Severity: severe Pain Scale: 10 Improves with: nothing Worsens with: nothing Associated symptoms: Reports: denies other symptoms Treatments Prior to Arrival: none - Related Data Home Medications Medication Instructions Recorded Confirmed Albuterol Sulfate [Albuterol 1 - 2 puff IH Q4-6H PRN 08/08/16 08/08/16 Inhaler] Gabapentin [Neurontin] 300 mg PO DAILY 08/08/16 08/08/16 Gabapentin [Neurontin] 600 mg PO HS 08/08/16 08/08/16 HydrOXYzine 20 mg PO TID 08/08/16 08/08/16 Mirtazapine [Remeron] 45 mg PO DAILY 08/08/16 08/08/16 Mometasone/Formoterol [Dulera 100 1 puff IH DAILY 08/08/16 08/08/16 Mcg/5 Mcg Inhaler] Omeprazole [PriLOSEC] 20 mg PO DAILY 08/08/16 08/08/16 OxyCODONE/APAP 10/325 [Percocet 1 each PO Q6H PRN 08/08/16 08/08/16 10/325 MG] Prazosin HCl [Minipress] 2 mg PO DAILY 08/08/16 08/08/16 clonazePAM [Klonopin] 0.5 mg PO BID 08/08/16 08/08/16 Previous Rx's Medication Instructions Recorded GuaiFENesin/Dextromethorphan 10 ml PO Q6HR PRN 7 Days 08/10/16 [Robitussin/Dm] Oseltamivir [Tamiflu] 75 mg PO BID 2 Days 08/10/16 levoFLOXacin [Levaquin] 750 mg PO DAILY #4 tablet 08/10/16 predniSONE [PredniSONE] See Taper PO DAILY #12 tablet 08/10/16 Clindamycin [Cleocin] 300 mg PO QID 7 Days 10/08/16 Allergies Allergy/AdvReac Type Severity Reaction Status Date / Time naproxen [From Aleve] AdvReac Hives Verified 08/08/16 07:59 All systems ED: reviewed and negative except as stated. Constitutional: Denies: fever Cardiovascular: Denies: chest pain Respiratory: Denies: cough Gastrointestinal: Reports: abdominal pain, nausea Genitourinary: Denies: dysuria Integumentary: Denies: rash Neurological: Denies: headache Endocrine: Reports: fatigue Past Medical History - Past Medical History Medical history: Reports: asthma, COPD, GERD, other Surgical history: Reports: other Psychiatric history: Reports: anxiety, depression, PTSD - Social History Smoking Status: Current every day smoker Smokeless Tobacco Status: No Alcohol use: Reports: rarely Drug use: Reports: none Physical Exam - General Limitations: no limitations General appearance: alert, in no apparent distress - Head Head exam: atraumatic - Eye Eye exam: Present: normal appearance, PERRL - ENT ENT exam: normal exam - Neck Neck exam: Present: normal inspection - Respiratory Respiratory exam: Present: normal lung sounds bilaterally. Absent: respiratory distress - Cardiovascular Cardiovascular exam: Present: regular rate, normal rhythm - Abdominal Exam Abdominal exam: Present: soft, tenderness (Bilateral lower abdominal tenderness. No rebound. Diffusely tender.), normal bowel sounds - Extremities Exam Extremities exam: Present: normal inspection - Neurological Exam Neurological exam: Present: alert, oriented X3 - Psychiatric Psychiatric exam: Present: normal affect - Skin Skin exam: Present: warm, dry Course Course Narrative: 50-year-old female with chronic abdominal pain and numerous abdominal surgeries presents with 2 days of bilateral lower abdominal pain and distention. We will obtain a CT scan of the abdomen and pelvis with IV and oral contrast due to the distorted anatomy that she has due to numerous surgeries. She clinically appears well and does not appear toxic. She has been able to drink today but has had decreased by mouth intake. She does have some mild tachycardia so I will go ahead and give her 1 L of fluid. I will also treat her pain and nausea. CT scan is concerning for partial or incomplete partial SBO. She is still passing gas and had a BM today. No white count and afebrile. I feel she would still benefit from a observation, NPO, and non emergent surgical consult in the AM. Accepted by Catherine Vital Signs Temperature 98.1 F 10/18/16 21:39 Pulse Rate 106 10/18/16 21:39 Respiratory Rate 18 10/18/16 21:39 Blood Pressure 130/84 10/18/16 21:39 O2 Sat by Pulse Oximetry 95 10/18/16 21:39 Temperature 98.1 F 10/18/16 21:39 Pulse Rate 89 10/18/16 23:58 Respiratory Rate 16 10/19/16 01:39 Blood Pressure 125/88 10/19/16 01:39 O2 Sat by Pulse Oximetry 94 10/18/16 23:58 Oxygen Delivery Oxygen Delivery Room Air Medical Decision Making - Medical Records Medical records reviewed: Yes I reviewed the patient's medical records. - Lab Data Lab results reviewed: Yes I reviewed the patient's lab results. Result diagrams: 10/18/16 23:07 10/18/16 22:54 Lab Results 10/18/16 10/18/16 10/18/16 Range/Units 21:55 22:54 23:07 WBC 9.7 (4.3-11.1) K/mcL RBC 5.36 H (3.82-4.97) M/mcL Hgb 15.6 H (11.5-15.4) g/dL Hct 47.5 H (35.3-44.9) % MCV 88.6 (83.0-100.0) fL MCH 29.1 (28.0-33.3) pg MCHC 32.8 (31.6-35.5) g/dL RDW 13.4 (11.5-14.5) % Plt Count 352 (140-400) K/mcL MPV 9.6 (9.4-12.4) fL Immature Gran % 0.3 (0-4) % Seg Neutrophils % 54.3 % Lymphocytes % 37.3 % Monocytes % 5.1 % Eosinophils % 2.5 % Basophils % 0.5 % Neutrophils # 5.3 (1.6-8.9) K/mcL Lymphocytes # 3.6 (0.6-4.6) K/mcL Monocytes # 0.5 (0.0-1.3) K/mcL Eosinophils # 0.2 (0.0-0.6) K/mcL Basophils # 0.1 (0.0-0.2) K/mcL Sodium 144 (136-145) mEq/L Potassium 3.1 L (3.5-4.5) mEq/L Chloride 104 (98-109) mEq/L Carbon Dioxide 29 (19-29) mEq/L BUN 14 (7-20) mg/dL Creatinine 0.77 (0.57-1.11) mg/dL Est GFR ( Amer) > 60 (> 60) Est GFR (Non-Af Amer) > 60 (> 60) BUN/Creatinine Ratio 18 (6-26) Glucose 90 (70-99) mg/dL Calculated Osmolality 298 (280-300) Calcium 9.0 (8.6-10.8) mg/dL Total Bilirubin 0.5 (0.2-1.2) mg/dL Direct Bilirubin 0.2 (0.0-0.5) mg/dL Indirect Bilirubin 0.3 (0.0-1.2) mg/dL AST 15 (5-34) Units/L ALT < 6 (0-55) Units/L Alkaline Phosphatase 109 (38-126) Units/L Serum Total Protein 6.7 (6.0-8.3) g/dL Albumin 3.4 L (3.5-5.0) g/dL Globulin 3.3 (2.4-3.5) g/dL Albumin/Globulin Ratio 1.0 L (1.1-2.2) Lipase 15 (8-78) Units/L Urine Color Dark Yellow (Yellow) Urine Clarity Cloudy A (Clear) Urine pH 5.5 (5.0-8.0) pH Units Ur Specific [place] > 1.030 H (1.010-1.025) Urine Protein 30 H (Neg-Trace) mg/dL Urine Glucose (UA) Normal (Normal) mg/dL Urine Ketones 40 H (Negative) mg/dL Urine Blood Negative (Negative) Urine Nitrite Negative (Negative) Urine Bilirubin Moderate H (Negative) Urine Urobilinogen Normal (Normal) mg/dL Ur Leukocyte Esterase Negative (Negative) Urine Microscopic RBC 5-15 H (0-3) per hpf Urine Microscopic WBC 15-30 H (0-3) per hpf Ur Squamous Epith Cells Many H (None-Few) per lpf Urine Bacteria Few (None-Few) per hpf Hyaline Casts Few (None-Few) per lpf Ur Culture Indicated? YES A (NO) - Radiology Data Radiology results reviewed: Yes I reviewed the patient's radiology results. Attestation Statement - Attestation Attestation: I, Dayrl Bailon MD, personally evaluated this patient and discussed their management with the resident physician. I reviewed the resident's note and agree with the documented findings, medical decision making, and plan of care. 50-year-old female presents to the emergency department with a complaint of diffuse lower abdominal pain for 2 days prior to arrival. There was some nausea and vomiting initially but none today. Some mild diarrhea. No melena, hematemesis, or hematochezia. No fever. No urinary symptoms. Patient has a history of multiple prior abdominal surgeries. On examination patient is a well-developed well-nourished female in no acute distress. She is alert and oriented 3. There is no cyanosis or diaphoresis. Breath sounds are clear and equal bilaterally. Heart regular rate and rhythm. Abdomen is soft with normal bowel sounds. There is tenderness to palpation especially across the lower abdomen. No guarding or rebound tenderness. No tympany or distention. No palpable organomegaly or masses. There is some bilateral CVA tenderness, worse on the left. Labs reviewed. CT of the abdomen and pelvis was read as cannot exclude partial low-grade distal small bowel obstruction. Small amount of free fluid in the pelvis. The hospitalist, Dr. Alexander, was consulted and accepted admission of the patient.
[2016-10-18 23:18] LABS: Basophils # 0.1 K/mcL (0.0-0.2); Basophils % 0.5 %; Eosinophils # 0.2 K/mcL (0.0-0.6); Eosinophils % 2.5 %; Hematocrit 47.5 % (35.3-44.9); Hemoglobin 15.6 g/dL (11.5-15.4); Immature Granulocytes % 0.3 % (0-4); Lymphocytes # 3.6 K/mcL (0.6-4.6); Lymphocytes % 37.3 %; Mean Corpuscular HGB Conc 32.8 g/dL (31.6-35.5); Mean Corpuscular Hemoglobin 29.1 pg (28.0-33.3); Mean Corpuscular Volume 88.6 fL (83.0-100.0); Mean Platelet Volume 9.6 fL (9.4-12.4); Monocytes # 0.5 K/mcL (0.0-1.3); Monocytes % 5.1 %; Neutrophils # 5.3 K/mcL (1.6-8.9); Platelet Count 352 K/mcL (140-400); Red Blood Count 5.36 M/mcL (3.82-4.97); Red Cell Distribution Width 13.4 % (11.5-14.5); Segmented Neutrophils % 54.3 %
[2016-10-18 23:33] LABS: Albumin 3.4 g/dL (3.5-5.0); Alkaline Phosphatase 109 Units/L (38-126); Aspartate Amino Transferase 15 Units/L (5-34); BUN/Creatinine Ratio 18 (6-26); Bilirubin,Direct 0.2 mg/dL (0.0-0.5); Bilirubin,Indirect 0.3 mg/dL (0.0-1.2); Bilirubin,Total 0.5 mg/dL (0.2-1.2); Blood Urea Nitrogen 14 mg/dL (7-20); Carbon Dioxide 29 mEq/L (19-29); Chloride 104 mEq/L (98-109); Globulin 3.3 g/dL (2.4-3.5); Glucose 90 mg/dL (70-99); Lipase 15 Units/L (8-78); Osmolality,Calculated 298 (280-300); Potassium 3.1 mEq/L (3.5-4.5); Sodium 144 mEq/L (136-145); Total Protein 6.7 g/dL (6.0-8.3); eGFR For African Americans > 60 (> 60); eGFR For Non-African Americans > 60 (> 60)
[2016-10-18 23:34] LABS: Alanine Aminotransferase < 6 Units/L (0-55)
[2016-10-19] MEDS ORDERED: Ondansetron 4 MG/2 ML VIAL IVP PRN (01:19)
[2016-10-19] MEDS ORDERED: Naloxone 0.4 MG/ML INJ IVP PRN (01:19)
[2016-10-19] MEDS ORDERED: Ipratropium/Albuterol Neb 3 ML IH PRN ×2 (01:44→04:00)
--- NOTE | 2016-10-19 01:48 | Internal Med History&Physical ---
Date of Encounter: 10/19/16 Time of Encounter: 01:45 Assessment and Plan (1) Partial small bowel obstruction Current visit: Yes Status: Acute Patient has had chronic abdominal pain for the past 7 years and has been on opioids. Patient had worsening abdominal pain over the past 2-3 days associated with nausea and vomiting. Exam reveals diffusely tender abdomen without rebound tenderness. CT scan evidence of dilated small bowel loops and collapsed ileum suspicious for partial small bowel section. Patient will be admitted to inpatient status. Expected to be in the hospital for at least overnight. Expected discharge disposition is to home. High-risk due to possible need for surgical intervention if the patient does not respond to conservative management. Patient will be kept nothing by mouth. Intravenous fluids. Will order scheduled Reglan to try to assist with bowel movements. Surgery consult in the morning. Intravenous PPI. (2) COPD (chronic obstructive pulmonary disease) Current visit: Yes Status: Chronic Stable and without exacerbation. We will continue home breathing treatments and when necessary DuoNeb's. Qualifiers: COPD type: unspecified COPD Qualified Code(s): J44.9 - Chronic obstructive pulmonary disease, unspecified (3) GERD (gastroesophageal reflux disease) Current visit: Yes Status: Chronic Intravenous PPI. Qualifiers: Esophagitis presence: esophagitis presence not specified Qualified Code(s) : K21.9 - Gastro-esophageal reflux disease without esophagitis (4) Tobacco abuse Current visit: Yes Status: Chronic Patient counseled regarding the need for smoking cessation. Internal Medicine - H&P: HPI Chief complaint: Abdominal pain Admitted From: Emergency Dept Plans for Post Hospital Care: Home History of present illness: Ms. Pratt is a 50 year old female with a history of multiple abdominal surgeries who presents to the emergency department due to abdominal pain. Patient states that abdominal pain started at 10 PM on Sunday. She states that the pain was 7/10 in intensity in the lower abdomen without any radiation and was dull in nature. The pain has been present since then and has been gradually getting worse over the last 2 days. The patient was not able to come to the emergency department as she needed to take care of her grandchildren. The pain is associated with nausea and vomiting. She denies any fever or chills. She reports an episode of diarrhea 2 days ago. She had bowel movement yesterday morning and states that has been passing gas last night. She denies any recent weight changes but states that her appetite has been very low. Denies any urinary symptoms, rash or bruising. She denies any weakness in her arms or legs or changes in her sensation. Past Med Surg Social Fam HX - Past Medical History Attestation: Yes The following information was validated with the patient. Source: patient Medical history: COPD, GERD, other Psychiatric history: anxiety, depression, PTSD - Past Surgical History Surgical History: cholecystectomy, hysterectomy, other (choledochal cyst repair) - Social History Smoking Status: Current every day smoker Packs per day: 1/2 Smokeless Tobacco Status: No Alcohol use: rarely Drug use: none Current living situation: Home, With Family Activity Level: Independent ambulation Recent Out of Country Travel Within the Last 8 Weeks: No Exposure or Possible Exposure to Illness During Travel: No - Additional Family History Additional family history: Reviewed; Not pertinent Internal Medicine - H&P: Meds Albuterol Sulfate [Albuterol Inhaler] 1 - 2 puff IH Q4-6H PRN 08/08/16 [History] Gabapentin [Neurontin] 300 mg PO DAILY 08/08/16 [History] Gabapentin [Neurontin] 600 mg PO HS 08/08/16 [History] HydrOXYzine 20 mg PO TID 08/08/16 [History] Mirtazapine [Remeron] 45 mg PO DAILY 08/08/16 [History] Mometasone/Formoterol [Dulera 100 Mcg/5 Mcg Inhaler] 1 puff IH DAILY 08/08/16 [ History] Omeprazole [PriLOSEC] 20 mg PO DAILY 08/08/16 [History] OxyCODONE/APAP 10/325 [Percocet 10/325 MG] 1 each PO Q6H PRN 08/08/16 [History] Prazosin HCl [Minipress] 2 mg PO DAILY 08/08/16 [History] clonazePAM [Klonopin] 0.5 mg PO BID 08/08/16 [History] GuaiFENesin/Dextromethorphan [Robitussin/Dm] 10 ml PO Q6HR PRN 7 Days 08/10/16 [ Rx] Oseltamivir [Tamiflu] 75 mg PO BID 2 Days 08/10/16 [Rx] levoFLOXacin [Levaquin] 750 mg PO DAILY #4 tablet 08/10/16 [Rx] predniSONE [PredniSONE] See Taper PO DAILY #12 tablet 08/10/16 [Rx] Clindamycin [Cleocin] 300 mg PO QID 7 Days 10/08/16 [Rx] Allergies naproxen [From Aleve] Adverse Reaction (Verified 08/08/16 07:59) Hives All Systems PM: A 10-system review of systems was performed and is negative for pertinent findings except as documented above in the HPI. - Constitutional Vitals: Temp Pulse Resp BP Pulse Ox 98.1 F 89 16 125/88 94 10/18/16 21:39 10/18/16 23:58 10/19/16 01:39 10/19/16 01:39 10/18/16 23:58 Exam: Gen.: Lying in bed. Mild to moderate distress. Eyes: Pupils equal, round and reactive to light. Extraocular muscles intact. ENT: Moist mucous membranes. No oropharyngeal erythema or discharge. Chest: Clear to auscultation bilaterally. No adventitious sounds present. CVS: First and second heart sounds present. No murmurs, rubs or gallops. Abdomen: Soft, diffusely tender to palpation without rebound tenderness, guarding or rigidity; nondistended. Bowel sounds present. Skin: No decubitus ulcers appreciated. SWITCHBOARD OPERATOR: No focal neuro deficits present. Psychiatric: Alert, awake and oriented to time, place and person. Lymphatic system: No lymphadenopathy appreciated Internal Med - H&P Results - Labs CBC & Chem 7: 10/18/16 23:07 10/18/16 22:54 Labs: Short CBC 10/18/16 Range/Units 23:07 WBC 9.7 (4.3-11.1) K/mcL Hgb 15.6 H (11.5-15.4) g/dL Hct 47.5 H (35.3-44.9) % Plt Count 352 (140-400) K/mcL Neutrophils # 5.3 (1.6-8.9) K/mcL BMP 10/18/16 22:54 Sodium 144 Potassium 3.1 L Chloride 104 Carbon Dioxide 29 BUN 14 Creatinine 0.77 Glucose 90 Calcium 9.0 Liver Function 10/18/16 Range/Units 22:54 Total Bilirubin 0.5 (0.2-1.2) mg/dL Direct Bilirubin 0.2 (0.0-0.5) mg/dL AST 15 (5-34) Units/L ALT < 6 (0-55) Units/L Alkaline Phosphatase 109 (38-126) Units/L Albumin 3.4 L (3.5-5.0) g/dL Urine 10/18/16 Range/Units 21:55 Urine Color Dark Yellow (Yellow) Urine Clarity Cloudy A (Clear) Urine pH 5.5 (5.0-8.0) pH Units Ur Specific [place] > 1.030 H (1.010-1.025) Urine Protein 30 H (Neg-Trace) mg/dL Urine Glucose (UA) Normal (Normal) mg/dL - Impressions ITS Impressions Abdomen/Pelvis CT 10/19/16 00:30 IMPRESSION: Stable postsurgical changes of cholecystectomy, hepaticojejunostomy and small bowel to small bowel anastomosis. Proximal small bowel loops are mildly dilated and opacified. The terminal ileum is collapsed. A partial/low grade distal small bowel obstruction is not excluded. Small amount of free fluid in the pelvis. D/ / Nolan Muhammad MD / Nolan Muhammad MD Interpreting Provider: Nolan Muhammad MD - Diagnostic Studies CT scan - abdomen Status: image reviewed by me (Partial small bowel loops are dilated. The terminal ileum is collapsed. Possible small bowel obstruction.)
[2016-10-19] MEDS: *HR* Morphine 2 MG/ML SYRINGE IVP PRN ×5 (02:10→20:10)
[2016-10-19] MEDS: D5% in 0.45% NACL w KCl 20 MEQ/1,000 ML MLS IVC SCH ×2 (02:16→16:12)
[2016-10-19] MEDS: *HR* Heparin 5,000 UNIT/ML VIAL SQ SCH ×3 (07:48→23:21)
[2016-10-19] MEDS: Pantoprazole 40 MG VIAL IVP SCH (07:48)
--- NOTE | 2016-10-19 08:48 | Internal Med Progress Note ---
<Usman Block - Last Filed: 10/19/16 13:57> Date of Encounter: 10/19/16 Time of Encounter: 08:48 - Assessment and plan (1) Partial small bowel obstruction Current Visit: Yes Status: Acute Assessment and plan: Patient admitted with abdominal pain and found to have partial small bowel obstruction with dilated small bowels and collapsed distal ileum with small amount of fluid in pelvis. - Patient is having flatulence, abdomen less distended and pain decreased. -No elevation of lactic acid, lipase normal, no significance electrolyte disturbances. Plan: - Clear liquid diet - If patient's abdominal distention does not improve she may need NG tube placement - Monitor patient abdominal exams every shift, repeat lab work in the a.m. (2) COPD (chronic obstructive pulmonary disease) Current Visit: Yes Status: Chronic Assessment and plan: Patient is a daily smoker with a history of COPD. No exacerbation - Starts duo nebs when necessary - Albuterol inhaler when necessary - Symbicort Qualifiers: COPD type: unspecified COPD Qualified Code(s): J44.9 - Chronic obstructive pulmonary disease, unspecified (3) Tobacco abuse Current Visit: Yes Status: Chronic Assessment and plan: Discussed smoking cessation. Highly recommended discontinuing smoking. (4) DVT prophylaxis Current Visit: No Status: Acute Assessment and plan: SQ Heparin 5000units Q8hr. - Subjective Interval history: Mrs. Pratt 50-year-old female admitted with partial small bowel obstruction seen and evaluated patient bedside this morning. She feels much better this morning and has had flatulence overnight she has not had a bowel movement since yesterday but does say she is hungry and her pain is a lot less. She does continue have some abdominal tenderness and abdominal distention and has not had a bowel movement thus far today. She has never had a small bowel obstruction previously and denies ever having a colonoscopy. - Constitutional Vitals: Temp Pulse Resp BP Pulse Ox 98.1 F 85 16 111/78 92 10/19/16 07:09 10/19/16 07:09 10/19/16 07:09 10/19/16 07:09 10/19/16 07:09 General appearance: Present: cooperative, A&O X 3, pleasant, no acute distress - Head Head exam: Present: atraumatic, normocephalic - Eye Eye exam: Present: PERRL, conjuntiva pink, sclera anicteric Pupils: Present: PERRL - ENT ENT exam: Present: mucous membranes moist - Neck Neck exam general surgery: Present: supple, trachea midline. Absent: lymphadenopathy - Respiratory Respiratory exam: Present: CTAB. Absent: accessory muscle use, rales, rhonchi, wheezes - Cardiovascular Cardiovascular exam: Present: RRR, +S1, +S2. Absent: diastolic murmur, gallop, rubs, systolic murmur - GI/Abdominal GI/Abdominal exam: Present: normal bowel sounds (Abdomen slightly distended, normal bowel sounds, tympanic in the epigastric region. Minimal pain to palpation.) - Extremities Exam Extremities exam: Present: warm, radial pulses palpable and symetrical. Absent : calf tenderness, cyanotic, pedal edema - Neurological Exam Neurological exam: Present: alert, oriented X3, no focal deficits. Absent: pronater drift, facial droop, speech deficit - Psychiatric Psychiatric exam: Present: normal affect, normal mood Internal Medicine: Result - Labs CBC & Chem 7: 10/19/16 09:01 10/19/16 09:01 Consult Discharge Plan - Plan Referrals: Musa Ellsworth MD [Primary Care Provider] - 10/26/16 9:45 am <Gunner Ruvalcaba - Last Filed: 10/19/16 16:10> Date of Encounter: 10/19/16 - Constitutional Vitals: Temp Pulse Resp BP Pulse Ox 98.6 F 73 16 127/88 93 10/19/16 15:49 10/19/16 15:49 10/19/16 15:49 10/19/16 15:49 10/19/16 15:49 Internal Medicine: Result - Labs CBC & Chem 7: 10/19/16 09:01 10/19/16 09:01 Labs: Short CBC 10/19/16 Range/Units 09:01 WBC 7.5 (4.3-11.1) K/mcL Hgb 13.1 D (11.5-15.4) g/dL Hct 40.2 (35.3-44.9) % Plt Count 274 (140-400) K/mcL Neutrophils # 4.3 (1.6-8.9) K/mcL BMP 10/19/16 09:01 Sodium 141 Potassium 3.4 L Chloride 108 Carbon Dioxide 27 BUN 8 Creatinine 0.64 Glucose 94 Calcium 8.0 L Liver Function 10/19/16 Range/Units 09:01 Total Bilirubin 0.4 (0.2-1.2) mg/dL AST 13 (5-34) Units/L ALT < 6 (0-55) Units/L Alkaline Phosphatase 88 (38-126) Units/L Albumin 2.8 L (3.5-5.0) g/dL - Attending Attestation I examined this patient and my medical decision-making was reviewed with the CHIEF DEPUTY SHERIFF/PA/Advanced Practice Nurse/Resident Physician. I agree with the documented findings, disposition and treatment plan as described except to the extent set forth below. IV fluids, conservative management, might need ng tube placment.
[2016-10-19 09:14] LABS: Basophils # 0.1 K/mcL (0.0-0.2); Basophils % 0.7 %; Eosinophils # 0.3 K/mcL (0.0-0.6); Eosinophils % 3.6 %; Hematocrit 40.2 % (35.3-44.9); Hemoglobin 13.1 g/dL (11.5-15.4); Immature Granulocytes % 0.3 % (0-4); Immature Platelets 2.1 % (1.1-6.1); Lymphocytes # 2.5 K/mcL (0.6-4.6); Mean Corpuscular HGB Conc 32.6 g/dL (31.6-35.5); Mean Corpuscular Hemoglobin 29.1 pg (28.0-33.3); Mean Corpuscular Volume 89.3 fL (83.0-100.0); Mean Platelet Volume 9.6 fL (9.4-12.4); Monocytes # 0.4 K/mcL (0.0-1.3); Monocytes % 5.3 %; Neutrophils # 4.3 K/mcL (1.6-8.9); Platelet Count 274 K/mcL (140-400); Red Cell Distribution Width 13.3 % (11.5-14.5); Segmented Neutrophils % 57.1 %
[2016-10-19 09:31] LABS: Albumin 2.8 g/dL (3.5-5.0); Alkaline Phosphatase 88 Units/L (38-126); Amylase 56 Units/L (25-125); Aspartate Amino Transferase 13 Units/L (5-34); BUN/Creatinine Ratio 13 (6-26); Bilirubin,Total 0.4 mg/dL (0.2-1.2); Blood Urea Nitrogen 8 mg/dL (7-20); Carbon Dioxide 27 mEq/L (19-29); Chloride 108 mEq/L (98-109); Globulin 2.8 g/dL (2.4-3.5); Glucose 94 mg/dL (70-99); Lipase 22 Units/L (8-78); Osmolality,Calculated 290 (280-300); Potassium 3.4 mEq/L (3.5-4.5); Sodium 141 mEq/L (136-145); Total Protein 5.6 g/dL (6.0-8.3); eGFR For African Americans > 60 (> 60); eGFR For Non-African Americans > 60 (> 60)
[2016-10-19 09:32] LABS: Alanine Aminotransferase < 6 Units/L (0-55)
[2016-10-19] MEDS: Budesonide/Formoterol 80/4.5 MDI IH SCH (19:46)
[2016-10-20] MEDS: *HR* Morphine 2 MG/ML SYRINGE IVP PRN ×6 (00:44→21:54)
[2016-10-20] MEDS: D5% in 0.45% NACL w KCl 20 MEQ/1,000 ML MLS IVC SCH ×2 (05:08→20:18)
[2016-10-20 05:18] LABS: Basophils % 0.7 %; Eosinophils # 0.2 K/mcL (0.0-0.6); Eosinophils % 2.9 %; Hematocrit 36.3 % (35.3-44.9); Immature Granulocytes % 0.2 % (0-4); Lymphocytes # 2.8 K/mcL (0.6-4.6); Lymphocytes % 48.2 %; Mean Corpuscular HGB Conc 33.1 g/dL (31.6-35.5); Mean Corpuscular Hemoglobin 29.5 pg (28.0-33.3); Mean Corpuscular Volume 89.2 fL (83.0-100.0); Mean Platelet Volume 10.6 fL (9.4-12.4); Monocytes # 0.3 K/mcL (0.0-1.3); Monocytes % 5.7 %; Neutrophils # 2.5 K/mcL (1.6-8.9); Platelet Count 232 K/mcL (140-400); Red Blood Count 4.07 M/mcL (3.82-4.97); Red Cell Distribution Width 13.2 % (11.5-14.5); Segmented Neutrophils % 42.3 %
[2016-10-20 05:33] LABS: Alanine Aminotransferase 6 Units/L (0-55); Albumin 2.8 g/dL (3.5-5.0); Alkaline Phosphatase 87 Units/L (38-126); Aspartate Amino Transferase 14 Units/L (5-34); BUN/Creatinine Ratio 8 (6-26); Bilirubin,Total 0.3 mg/dL (0.2-1.2); Calcium 8.4 mg/dL (8.6-10.8); Carbon Dioxide 27 mEq/L (19-29); Chloride 109 mEq/L (98-109); Globulin 2.8 g/dL (2.4-3.5); Glucose 94 mg/dL (70-99); Osmolality,Calculated 291 (280-300); Potassium 3.4 mEq/L (3.5-4.5); Sodium 142 mEq/L (136-145); Total Protein 5.6 g/dL (6.0-8.3); eGFR For African Americans > 60 (> 60); eGFR For Non-African Americans > 60 (> 60)
[2016-10-20 05:47] LABS: Blood Urea Nitrogen 5 mg/dL (7-20)
[2016-10-20] MEDS: Pantoprazole 40 MG VIAL IVP SCH (07:50)
[2016-10-20] MEDS: *HR* Heparin 5,000 UNIT/ML VIAL SQ SCH ×3 (07:50→23:34)
[2016-10-20] MEDS: Budesonide/Formoterol 80/4.5 MDI IH SCH ×2 (08:12→20:04)
--- NOTE | 2016-10-20 15:07 | Internal Med Progress Note ---
<Usman Block - Last Filed: 10/20/16 15:04> Date of Encounter: 10/20/16 Time of Encounter: 08:40 - Assessment and plan (1) Partial small bowel obstruction Current Visit: Yes Status: Acute Assessment and plan: Patient admitted with abdominal pain and found to have partial small bowel obstruction with dilated small bowels and collapsed distal ileum with small amount of fluid in pelvis. - Patient is having flatulence, abdomen distended and pain decreased. KUB: No signs of increased bowel gas. Oral contrast at rectal vault. Plan: - Transition diet as tolerated - We will monitor patient overnight to make sure she improves and tolerates oral intake. If this is tolerated she may be discharged tomorrow. (2) COPD (chronic obstructive pulmonary disease) Current Visit: Yes Status: Chronic Assessment and plan: Patient is a daily smoker with a history of COPD. No exacerbation - Starts duo nebs when necessary - Albuterol inhaler when necessary - Symbicort Qualifiers: COPD type: unspecified COPD Qualified Code(s): J44.9 - Chronic obstructive pulmonary disease, unspecified (3) Tobacco abuse Current Visit: Yes Status: Chronic Assessment and plan: Discussed smoking cessation. Highly recommended discontinuing smoking. (4) DVT prophylaxis Current Visit: No Status: Acute Assessment and plan: SQ Heparin 5000units Q8hr. - Subjective Interval history: Mrs. Pratt 50-year-old female admitted with partial small bowel obstruction seen and evaluated patient bedside this morning. She feels slightly improved compared to yesterday but continues to have some abdominal distention and tenderness to palpation. She has been passing gas and having bowel movements and tolerating clear liquids orally. She would like to advance her diet as she feels hungry. She has any fevers, chills, nausea vomiting, blood in her stools or urine. She has no other complaints or concerns at this time - Constitutional Vitals: Temp Pulse Resp BP Pulse Ox 98.2 F 70 15 126/85 95 10/20/16 14:55 10/20/16 14:55 10/20/16 14:55 10/20/16 14:55 10/20/16 14:55 General appearance: Present: cooperative, A&O X 3, pleasant, no acute distress Exam: General: Patient alert, awake, oriented 3, interactive, in no acute distress HEENT: Normocephalic, atraumatic, pupils equal reactive to light, nasal cavity pain and open septum median position, oral mucosa moist, uvula midline, neck supple trachea midline no palpable lymphadenopathy, no thyromegaly. Chest: Symmetric bilateral correlating with respiratory effort, effort nonlabored. Cardiac: Regular rate and rhythm, positive S1, S2, no bruits appreciated bilateral carotids, Radial pulses 2+ bilateral, posterior tibial and dorsal pedal pulses 2+ bilateral. Respiratory: Clear to auscultation all lung shetty Abdomen: normal bowel sounds (Abdomen slightly distended, normal bowel sounds, tympanic in the epigastric region. Minimal pain to palpation.) Extremities: Symmetric bilateral, no erythema or edema, patient moving all 4 extremities spontaneously. Neurologic: No focal deficits appreciated on examination. Face symmetric, muscle strength symmetric bilateral upper and lower extremities. Internal Medicine: Result - Labs CBC & Chem 7: 10/20/16 04:42 10/20/16 04:42 Labs: Short CBC 10/20/16 Range/Units 04:42 WBC 5.8 (4.3-11.1) K/mcL Hgb 12.0 (11.5-15.4) g/dL Hct 36.3 (35.3-44.9) % Plt Count 232 (140-400) K/mcL Neutrophils # 2.5 (1.6-8.9) K/mcL BMP 10/20/16 04:42 Sodium 142 Potassium 3.4 L Chloride 109 Carbon Dioxide 27 BUN 5 L Creatinine 0.64 Glucose 94 Calcium 8.4 L Liver Function 10/20/16 Range/Units 04:42 Total Bilirubin 0.3 (0.2-1.2) mg/dL AST 14 (5-34) Units/L ALT 6 (0-55) Units/L Alkaline Phosphatase 87 (38-126) Units/L Albumin 2.8 L (3.5-5.0) g/dL - Impressions Impressions KUB X-Ray 10/20/16 10:02 IMPRESSION: No air-filled dilated loops of bowel. D/ / Ashley Cabral MD / Ashley Cabral MD Interpreting Provider: Ashley Cabral MD Consult Discharge Plan - Plan Referrals: Musa Ellsworth MD [Primary Care Provider] - 10/26/16 9:45 am <Gunner Ruvalcaba - Last Filed: 10/20/16 15:49> Date of Encounter: 10/20/16 - Constitutional Vitals: Temp Pulse Resp BP Pulse Ox 98.2 F 70 15 126/85 95 10/20/16 14:55 10/20/16 14:55 10/20/16 14:55 10/20/16 14:55 10/20/16 14:55 Internal Medicine: Result - Labs CBC & Chem 7: 10/20/16 04:42 10/20/16 04:42 Labs: Short CBC 10/20/16 Range/Units 04:42 WBC 5.8 (4.3-11.1) K/mcL Hgb 12.0 (11.5-15.4) g/dL Hct 36.3 (35.3-44.9) % Plt Count 232 (140-400) K/mcL Neutrophils # 2.5 (1.6-8.9) K/mcL BMP 10/20/16 04:42 Sodium 142 Potassium 3.4 L Chloride 109 Carbon Dioxide 27 BUN 5 L Creatinine 0.64 Glucose 94 Calcium 8.4 L Liver Function 10/20/16 Range/Units 04:42 Total Bilirubin 0.3 (0.2-1.2) mg/dL AST 14 (5-34) Units/L ALT 6 (0-55) Units/L Alkaline Phosphatase 87 (38-126) Units/L Albumin 2.8 L (3.5-5.0) g/dL - Impressions Impressions KUB X-Ray 10/20/16 10:02 IMPRESSION: No air-filled dilated loops of bowel. D/ / Ashley Cabral MD / Ashley Cabral MD Interpreting Provider: Ashley Cabral MD - Attending Attestation I examined this patient and my medical decision-making was reviewed with the EMPLOYEE SERVICE OFFICER/PA/Advanced Practice Nurse/Resident Physician. I agree with the documented findings, disposition and treatment plan as described except to the extent set forth below. XRay noted, will continue with conservative management. D/W patient.
[2016-10-21] MEDS: *HR* Morphine 2 MG/ML SYRINGE IVP PRN ×3 (02:20→12:15)
[2016-10-21 03:04] LABS: Basophils % 0.5 %; Eosinophils # 0.1 K/mcL (0.0-0.6); Eosinophils % 1.7 %; Hematocrit 38.8 % (35.3-44.9); Hemoglobin 12.6 g/dL (11.5-15.4); Immature Granulocytes % 0.2 % (0-4); Lymphocytes # 2.5 K/mcL (0.6-4.6); Lymphocytes % 41.8 %; Mean Corpuscular HGB Conc 32.5 g/dL (31.6-35.5); Mean Corpuscular Hemoglobin 28.8 pg (28.0-33.3); Mean Corpuscular Volume 88.8 fL (83.0-100.0); Mean Platelet Volume 10.7 fL (9.4-12.4); Monocytes # 0.4 K/mcL (0.0-1.3); Monocytes % 6.7 %; Platelet Count 237 K/mcL (140-400); Red Blood Count 4.37 M/mcL (3.82-4.97); Red Cell Distribution Width 13.2 % (11.5-14.5); Segmented Neutrophils % 49.1 %
[2016-10-21 03:18] LABS: Alanine Aminotransferase 7 Units/L (0-55); Albumin 3.1 g/dL (3.5-5.0); Alkaline Phosphatase 90 Units/L (38-126); Aspartate Amino Transferase 14 Units/L (5-34); BUN/Creatinine Ratio 5 (6-26); Bilirubin,Total 0.3 mg/dL (0.2-1.2); Calcium 8.9 mg/dL (8.6-10.8); Carbon Dioxide 25 mEq/L (19-29); Chloride 110 mEq/L (98-109); Globulin 3.1 g/dL (2.4-3.5); Glucose 94 mg/dL (70-99); Osmolality,Calculated 292 (280-300); Potassium 3.6 mEq/L (3.5-4.5); Sodium 143 mEq/L (136-145); Total Protein 6.2 g/dL (6.0-8.3); eGFR For African Americans > 60 (> 60); eGFR For Non-African Americans > 60 (> 60)
[2016-10-21 03:19] LABS: Blood Urea Nitrogen 3 mg/dL (7-20)
[2016-10-21] MEDS: *HR* Heparin 5,000 UNIT/ML VIAL SQ SCH (08:03)
[2016-10-21] MEDS: Pantoprazole 40 MG VIAL IVP SCH (08:03)
[2016-10-21] MEDS: Budesonide/Formoterol 80/4.5 MDI IH SCH (08:08)
[2016-10-21 11:49] VITALS: BP 133/78
[2016-10-21] MEDS ORDERED: *HR* OxyCODONE/APAP 10/325 TABLET PO ONE ×2 (12:31→13:14)
--- NOTE | 2016-10-21 12:47 | Discharge Summary ---
Date of Encounter: 10/21/16 Time of Encounter: 12:45 - Discharge Diagnosis (1) Partial small bowel obstruction Priority: Primary Status: Acute (2) COPD (chronic obstructive pulmonary disease) Priority: Secondary Status: Chronic Qualifiers: COPD type: unspecified COPD Qualified Code(s): J44.9 - Chronic obstructive pulmonary disease, unspecified (3) GERD (gastroesophageal reflux disease) Priority: Secondary Status: Chronic Qualifiers: Esophagitis presence: esophagitis presence not specified Qualified Code(s) : K21.9 - Gastro-esophageal reflux disease without esophagitis (4) Tobacco abuse Priority: Secondary Status: Chronic (5) DVT prophylaxis Priority: Secondary Status: Acute - Discharge Medications Prescriptions: Polyethylene Glycol 3350 [MiraLAX Powder Bulk 17.9 Oz] 1 scoop PO DAILY #510 gm Home Medications: Albuterol Sulfate [Albuterol Inhaler] 1 - 2 puff IH Q4-6H PRN 08/08/16 [History] Mirtazapine [Remeron] 45 mg PO DAILY 08/08/16 [History] Mometasone/Formoterol [Dulera 100 Mcg/5 Mcg Inhaler] 1 puff IH DAILY 08/08/16 [ History] Omeprazole [PriLOSEC] 20 mg PO DAILY 08/08/16 [History] OxyCODONE/APAP 10/325 [Percocet 10/325 MG] 1 each PO Q6H PRN 08/08/16 [History] Prazosin HCl [Minipress] 2 mg PO DAILY 08/08/16 [History] clonazePAM [Klonopin] 0.5 mg PO TID 08/08/16 [History] hydrOXYzine HCl [Hydroxyzine HCl] 50 mg PO TID 10/19/16 [History] Polyethylene Glycol 3350 [MiraLAX Powder Bulk 17.9 Oz] 1 scoop PO DAILY #510 gm 10/21/16 [Rx] Allergies/Adverse Reactions: Allergies naproxen [From Aleve] Adverse Reaction (Verified 10/19/16 06:53) Hives Date of admission: 10/19/16 02:36 Primary care physician: Musa Ellsworth MD Discharging clinician: Gunner Ruvalcaba Anticipated date of discharge: 10/21/16 - Patient Status Disposition: Home, Self-Care Condition: Good Functional capacity at discharge: independent ambulation Overall status at discharge: patient is back to baseline - Discharge Instructions Follow Up With: Musa Ellsworth MD [Primary Care Provider] - 10/26/16 9:45 am - Diet and Activity Activity: increase activity as tolerated Diet: advance to your usual diet Interval History: As per HPI on admission: Ms. Pratt is a 50 year old female with a history of multiple abdominal surgeries who presents to the emergency department due to abdominal pain. Patient states that abdominal pain started at 10 PM on Sunday. She states that the pain was 7/10 in intensity in the lower abdomen without any radiation and was dull in nature. The pain has been present since then and has been gradually getting worse over the last 2 days. The patient was not able to come to the emergency department as she needed to take care of her grandchildren. The pain is associated with nausea and vomiting. She denies any fever or chills. She reports an episode of diarrhea 2 days ago. She had bowel movement yesterday morning and states that has been passing gas last night. She denies any recent weight changes but states that her appetite has been very low. Denies any urinary symptoms, rash or bruising. She denies any weakness in her arms or legs or changes in her sensation. Hospital course: Ms. Pratt is a 50 year old female . Patient admitted with abdominal pain and found to have partial small bowel obstruction with dilated small bowels and collapsed distal ileum with small amount of fluid in pelvis. Patient is having flatulence, had bowel movements, abdominal distention and pain decreased. KUB: No signs of increased bowel gas. Oral contrast at rectal vault. Patient has tolerated diet. She is stable for discharge. Will discharge her home today. D/W patient, she expressed understanding. - Time Spent with Patient Total time spent providing and/or coordinating discharge services: - Constitutional Vitals: Temp Pulse Resp BP Pulse Ox 98.2 F 65 17 133/78 95 10/21/16 11:47 10/21/16 11:47 10/21/16 11:47 10/21/16 11:47 10/21/16 11:47 General appearance: Present: cooperative, A&O X 3, pleasant, no acute distress - Head Head exam: Present: atraumatic, normocephalic - Eye Eye exam: Present: PERRL, conjuntiva pink, sclera anicteric Pupils: Present: PERRL - Neck Neck exam general surgery: Present: supple, trachea midline. Absent: lymphadenopathy - Respiratory Respiratory exam: Present: CTAB. Absent: accessory muscle use, rales, rhonchi, wheezes - Cardiovascular Cardiovascular exam: Present: RRR, +S1, +S2. Absent: diastolic murmur, gallop, rubs, systolic murmur - GI/Abdominal GI/Abdominal exam: Present: normal bowel sounds, soft, no peritoneal signs. Absent: distended, tenderness - Extremities Exam Extremities exam: Present: warm, radial pulses palpable and symetrical. Absent : calf tenderness, cyanotic, pedal edema - Neurological Exam Neurological exam: Present: CN II-XII intact, oriented X3, no focal deficits. Absent: pronater drift, facial droop, speech deficit - Skin Skin exam: Present: dry, intact
== END 2016-10-21 14:20 | disposition home or self-care (01) | DRG 247 ==
LOC: EMEROO 21:37 → 3BNU 21:37
PROVIDERS: ADMIT Registered Nurse; ATTEND Registered Nurse

== ENCOUNTER 2017-04-29 16:46 | Inpatient (IN) ==
[2017-04-29] MEDS ORDERED: 0.9 % Sodium Chloride 1,000 ML IVC ONE (18:05)
[2017-04-29] MEDS ORDERED: Ipratropium/Albuterol Neb 3 ML IH ONE (18:06)
[2017-04-29] MEDS ORDERED: Ondansetron 4 MG/2 ML VIAL IVP ONE (18:07)
[2017-04-29 18:18] LABS: Basophils % 0.2 %; Eosinophils % 0.2 %; Hematocrit 42.1 % (35.3-44.9); Hemoglobin 13.6 g/dL (11.5-15.4); Immature Granulocytes % 0.6 % (0-4); Lymphocytes # 0.9 K/mcL (0.6-4.6); Lymphocytes % 6.1 %; Mean Corpuscular HGB Conc 32.3 g/dL (31.6-35.5); Mean Corpuscular Hemoglobin 29.4 pg (28.0-33.3); Mean Corpuscular Volume 90.9 fL (83.0-100.0); Mean Platelet Volume 10.9 fL (9.4-12.4); Monocytes # 0.6 K/mcL (0.0-1.3); Monocytes % 4.3 %; Neutrophils # 12.6 K/mcL (1.6-8.9); Platelet Count 222 K/mcL (140-400); Red Blood Count 4.63 M/mcL (3.82-4.97); Segmented Neutrophils % 88.6 %
--- NOTE | 2017-04-29 18:30 | Emergency Department Note ---
Disposition Clinical Impression: Bilateral pleural effusion Pneumonia Qualifiers: Pneumonia type: due to unspecified organism Laterality: right Lung location: unspecified part of lung Qualified Code(s): J18.9 - Pneumonia, unspecified organism Community acquired pneumonia Qualifiers: Laterality: right Lung location: unspecified part of lung Qualified Code(s): J18.9 - Pneumonia, unspecified organism Sepsis Qualifiers: Sepsis type: sepsis due to unspecified organism Qualified Code(s): A41.9 - Sepsis, unspecified organism Disposition: Admitted As Inpatient Condition: Fair Time of Disposition: 19:06 SOB HPI - General Chief Complaint: ED Shortness of Breath/Dyspnea Stated Complaint: "Pneumonia and Flu" Time Seen by Provider: 04/29/17 17:23 Source: patient Limitations: no limitations Nursing Notes Reviewed: Yes Vital Signs Reviewed: Yes - History of Present Illness 51-year-old female history of COPD on 2 L home oxygen supplementation as needed at night presents with difficulty breathing. She states over the past 24 hours she has been experiencing some muscle aches mostly to her back and chest. This morning around 0 900 she has been progressively more weaker and having a harder time breathing. She denies any chest pain however does feel sore. She denies any fever, reports chills. She has a nonproductive cough with some rhinorrhea. She has also been experiencing some nausea vomiting and loose stools. No history of cardiac ischemic disease. No history of blood clot, cancer, long- distance travel, surgery or hospitalizations. She has been visiting her mother- in-law at [facility] quite frequently. She denies any exposure to the influenza or any other sick contacts. Denies any recent travel. On arrival patient appears ill and week. She is tachycardic with a temperature of 100.3. SIRS alert and full septic workup at this time with influenza swab. Pt Subjective Complaint: shortness of breath, cough - Related Data Home Medications Medication Instructions Recorded Confirmed Albuterol Sulfate [Albuterol 1 - 2 puff IH Q4-6H PRN 08/08/16 10/19/16 Inhaler] Mirtazapine [Remeron] 45 mg PO DAILY 08/08/16 10/19/16 Mometasone/Formoterol [Dulera 100 1 puff IH DAILY 08/08/16 10/19/16 Mcg/5 Mcg Inhaler] Omeprazole [PriLOSEC] 20 mg PO DAILY 08/08/16 10/19/16 OxyCODONE/APAP 10/325 [Percocet 1 each PO Q6H PRN 08/08/16 10/19/16 10/325 MG] Prazosin HCl [Minipress] 2 mg PO DAILY 08/08/16 10/19/16 clonazePAM [Klonopin] 0.5 mg PO TID 08/08/16 10/19/16 hydrOXYzine HCl [Hydroxyzine HCl] 50 mg PO TID 10/19/16 10/19/16 Previous Rx's Medication Instructions Recorded Polyethylene Glycol 3350 [MiraLAX 1 scoop PO DAILY #510 gm 10/21/16 Powder Bulk 17.9 Oz] Allergies Allergy/AdvReac Type Severity Reaction Status Date / Time naproxen [From Aleve] AdvReac Hives Verified 04/29/17 17:20 All systems ED: reviewed and negative except as stated. Review of Systems: As Per HPI Constitutional: Reports: chills. Denies: fever ENT ED: Reports: congestion. Denies: dysphagia Cardiovascular: Reports: chest pain, dyspnea on exertion Respiratory: Reports: cough, dyspnea. Denies: wheezes Gastrointestinal: Reports: nausea, diarrhea. Denies: abdominal pain, vomiting Genitourinary: Denies: urgency, dysuria Musculoskeletal: Reports: back pain, myalgia. Denies: neck pain Integumentary: Denies: rash, abrasion, lesions Neurological: Denies: headache, weakness Psychiatric: Denies: anxiety, depression Past Medical History - Past Medical History Attestation: Yes The following information was validated with the patient. Source: patient Medical history: Reports: asthma, COPD, GERD, other Surgical history: Reports: appendectomy, colectomy, hysterectomy, other Psychiatric history: Reports: anxiety, depression, PTSD ASSISTANT PROFESSOR history: Reports: no ASSISTANT PROFESSOR history - Social History Smoking Status: Current every day smoker Smokeless Tobacco Status: No Alcohol use: Reports: rarely Drug use: Reports: none Physical Exam - General Limitations: no limitations General appearance: alert, in distress - Head Head exam: atraumatic, normocephalic, normal inspection - Eye Eye exam: Present: normal appearance, PERRL, EOMI - ENT ENT exam: normal exam, normal oropharynx, mucous membranes dry - Neck Neck exam: Present: normal inspection, full ROM, trachea midline - Chest Chest inspection: Present: normal inspection, symmetric chest wall rise, tenderness (Soreness to the upper chest) - Respiratory Respiratory exam: Present: normal lung sounds bilaterally, wheezes. Absent: respiratory distress - Cardiovascular Cardiovascular exam: Present: regular rate, normal rhythm, normal heart sounds - Abdominal Exam Abdominal exam: Present: soft, Non-Tender. Absent: tenderness, distention, guarding, rebound, rigidity - Extremities Exam Extremities exam: Present: normal inspection, full ROM, normal capillary refill. Absent: tenderness, pedal edema, calf tenderness - Back Exam Back exam: Present: normal inspection, full ROM. Absent: tenderness, CVA tenderness (R), CVA tenderness (L) - Neurological Exam Neurological exam: Present: alert, oriented X3 - Skin Skin exam: Present: warm, dry, intact, normal color. Absent: rash, cyanosis, diaphoresis Course - Reevaluation(s) Reevaluation #1: Review of the chest x-ray shows a multifocal right-sided capacity consistent with pneumonia. She also has bilateral pleural effusion more on the right than the left. These findings are consistent with presentation. She met 3 of 4 SIRS criteria, will require admission and is now sepsis with confirmed source pulmonary. She denies any recent hospitalization the past 3 months. She is not immunocompromised. We treat as community acquired pneumonia with Levaquin. Awaiting further laboratory results including her influenza swap. She will be admitted for further management. She is in agreement with this plan. She is not hypotensive to suggest shock and does not require aggressive fluid resuscitation of 30 mL per kilogram at this time. Chest X-Ray 04/29/17 17:24 IMPRESSION: Multifocal right-sided airspace disease most consistent with pneumonia. Right greater than left pleural effusions. Radiographic follow-up to resolution is needed. D/ / 04/29/2017 18:13:13 Kevan Cheatham MD / [facility] Interpreting Provider: Kevan Cheatham MD Time: 18:20 Reevaluation #2: Her lactic acid is 1.1. This does not meet severe sepsis. She has remained stable here in the emergency department. Stable for transfer to the floor for admission. - Consultations Consultation #1: Spoke with on-call hospitalist janene Mendoza to admit for sepsis CAP. No further orders at this time Time: 19:31 Vital Signs Temperature 100.3 F H 04/29/17 17:17 Pulse Rate 133 04/29/17 17:17 Respiratory Rate 24 04/29/17 17:17 Blood Pressure 110/76 04/29/17 17:17 O2 Sat by Pulse Oximetry 85 04/29/17 17:17 Temperature 100.3 F H 04/29/17 17:17 Pulse Rate 115 04/29/17 18:17 Respiratory Rate 20 04/29/17 18:19 Blood Pressure 107/88 04/29/17 18:17 O2 Sat by Pulse Oximetry 93 04/29/17 19:39 Oxygen Delivery Oxygen Delivery Nasal Cannula Shortness of Breath/Dyspnea - MDM Narrative Medical decision making narrative: Patient was discussed with my attending physician who agrees with ED management and final disposition. They independently evaluated the patient. Please refer to their attestation to this encounter for additional information. This note was generated by [employer] voice recognition software and as a result grammatical or spelling errors may occur using this program. - Medical Records Medical records reviewed: Yes I reviewed the patient's medical records. - Lab Data Lab results reviewed: Yes I reviewed the patient's lab results. Result diagrams: 04/29/17 18:07 04/29/17 18:07 Lab Results 04/29/17 04/29/17 04/29/17 Range/Units 18:07 18:07 19:25 WBC 14.2 H (4.3-11.1) K/mcL RBC 4.63 (3.82-4.97) M/mcL Hgb 13.6 (11.5-15.4) g/dL Hct 42.1 (35.3-44.9) % MCV 90.9 (83.0-100.0) fL MCH 29.4 (28.0-33.3) pg MCHC 32.3 (31.6-35.5) g/dL RDW 13.0 (11.5-14.5) % Plt Count 222 (140-400) K/mcL MPV 10.9 (9.4-12.4) fL Immature Gran % 0.6 (0-4) % Seg Neutrophils % 88.6 % Lymphocytes % 6.1 % Monocytes % 4.3 % Eosinophils % 0.2 % Basophils % 0.2 % Neutrophils # 12.6 H (1.6-8.9) K/mcL Lymphocytes # 0.9 (0.6-4.6) K/mcL Monocytes # 0.6 (0.0-1.3) K/mcL Eosinophils # 0.0 (0.0-0.6) K/mcL Basophils # 0.0 (0.0-0.2) K/mcL Sodium 140 (136-145) mEq/L Potassium 3.5 (3.5-4.5) mEq/L Chloride 106 (98-109) mEq/L Carbon Dioxide 22 (19-29) mEq/L BUN 8 (7-20) mg/dL Creatinine 0.68 (0.57-1.11) mg/dL Est GFR ( Amer) > 60 (> 60) Est GFR (Non-Af Amer) > 60 (> 60) BUN/Creatinine Ratio 12 (6-26) Glucose 102 H (70-99) mg/dL Calculated Osmolality 289 (280-300) Lactic Acid 1.1 (0.5-2.2) mmol/L Calcium 9.4 (8.6-10.8) mg/dL - Radiology Data Radiology results reviewed: Yes I reviewed the patient's radiology results. Chest X-Ray 04/29/17 17:24 IMPRESSION: Multifocal right-sided airspace disease most consistent with pneumonia. Right greater than left pleural effusions. Radiographic follow-up to resolution is needed. D/ / 04/29/2017 18:13:13 Kevan Cheatham MD / [facility] Interpreting Provider: Kevan Cheatham MD - EKG Data EKG attestation: Yes I reviewed and interpreted this EKG. EKG results narrative: EKG performed 1733 sinus tachycardia 1 19 bpm, normal axis, no ST elevations or depressions, no T wave inversion, good R wave progression, intervals are within normal limits. Compared to old EKG performed 08/07/2016 shows normal sinus rhythm sinus tachycardia 1 17 bpm with similar consistent findings. No acute ischemic changes. Critical Care Time Critical Care Time: Yes Total Critical Care Time: 35 Attestation: Care time 35 minutes Attestation Statement - Attestation Attestation: Patient was seen with resident physician. I reviewed the history, physical, assessment and plan, and agree with the findings. I also personally evaluated this patient and had [id number] time with this patient. 51-year-old female presents to the emergency Department chief complaint of pneumonia. Patient states she has had multiple episodes of pneumonia. She says this feels just like him. Getting worse since this morning. She has shortness of breath. She has fevers. She said she is on home O2 at nighttime only able to liters secondary to COPD. She is a smoker and continues to be. Denies chest pain. On exam vitals are stable. ENT is unremarkable. Heart normal. Lungs crackles on the right side. Abdomen is soft and nontender. Extremities unremarkable. Neurologically intact ED course x-ray reveals pneumonia. A full septic workup was done secondary to the patient's elevated heart rate. She is given fluids IV antibiotics, and we will admit her to the hospital service for further evaluation and treatment. Critical care time 35 minutes. Agree with resident physician assessment and plan.
[2017-04-29] MEDS ORDERED: Levofloxacin 750 MG/150 ML 750 MG/150 ML BAG IVPB ONE (18:36)
[2017-04-29 18:48] LABS: BUN/Creatinine Ratio 12 (6-26); Blood Urea Nitrogen 8 mg/dL (7-20); Calcium 9.4 mg/dL (8.6-10.8); Carbon Dioxide 22 mEq/L (19-29); Chloride 106 mEq/L (98-109); Glucose 102 mg/dL (70-99); Osmolality,Calculated 289 (280-300); Potassium 3.5 mEq/L (3.5-4.5); Sodium 140 mEq/L (136-145); eGFR For African Americans > 60 (> 60); eGFR For Non-African Americans > 60 (> 60)
[2017-04-29] MEDS ORDERED: *HR* Promethazine 25 MG/ML VIAL IVP PRN (19:55)
[2017-04-29] MEDS ORDERED: Ondansetron 4 MG/2 ML VIAL IVP PRN (19:55)
[2017-04-29] MEDS ORDERED: *HR* Morphine 2 MG/ML SYRINGE IVP PRN (19:55)
[2017-04-29] MEDS ORDERED: Naloxone 0.4 MG/ML INJ IVP PRN (19:55)
[2017-04-29] MEDS ORDERED: Ipratropium/Albuterol Neb 3 ML IH PRN (19:57)
--- NOTE | 2017-04-29 20:02 | Internal Med History&Physical ---
Date of Encounter: 04/29/17 Time of Encounter: 19:59 Assessment and Plan (1) Community acquired pneumonia Current visit: Yes Status: Acute send flu panel and strep serology Empiric cefepime , azithro IV duonebs Qualifiers: Laterality: right Lung location: unspecified part of lung Qualified Code( s): J18.9 - Pneumonia, unspecified organism (2) Acute exacerbation of chronic obstructive airways disease Current visit: No Status: Acute duonebs, antibiotics as above IV steroids (3) Tobacco abuse Current visit: No Status: Chronic declined patch smokes 1/2 PPD Internal Medicine - H&P: HPI Chief complaint: SOB History of present illness: Ms. Pratt is a 51 year old female who presents with SOB. Found to have PNA. She has COPD and uses 2 L NC prn at baseline. She developed symptoms since sunday with SOB, worse on exertion, better with rest. Associated with sore lower back, nausea and non-bloody diarrhea and emesis several episodes today. Her energy is low. Some chills reported. EKG reviewed by self with rate 119, sinus tachycardia XR/XR chest 2V IMPRESSION: Multifocal right-sided airspace disease most consistent with pneumonia. Right greater than left pleural effusions. Radiographic follow-up to resolution is needed. Past Med Surg Social Fam HX - Past Medical History Medical history: asthma, COPD, GERD, other Psychiatric history: anxiety, depression, PTSD - Past Surgical History Surgical History: appendectomy, colectomy, hysterectomy, other - Social History Smoking Status: Current every day smoker Smokeless Tobacco Status: No Alcohol use: rarely Drug use: none - Family History Son Living Status: Still Living Hx Family Cardiac Disorders: Yes (HLD) Hx Family Respiratory Disorders: No Hx Family Cancer: No Hx Family GI Disorders: No Hx Family Endocrine Disorder: Yes (Type 1 DM) Hx Family Neuromuscular Disorders: No Hx Family Neurologic Disorders: No Hx Family HEENT Disorders: No Hx Family Autoimmune Disorders: No Internal Medicine - H&P: Meds Albuterol Sulfate [Albuterol Inhaler] 1 - 2 puff IH Q4-6H PRN 08/08/16 [History] Mirtazapine [Remeron] 45 mg PO DAILY 08/08/16 [History] Mometasone/Formoterol [Dulera 100 Mcg/5 Mcg Inhaler] 1 puff IH DAILY 08/08/16 [ History] Omeprazole [PriLOSEC] 20 mg PO DAILY 08/08/16 [History] OxyCODONE/APAP 10/325 [Percocet 10/325 MG] 1 each PO Q6H PRN 08/08/16 [History] Prazosin HCl [Minipress] 2 mg PO DAILY 08/08/16 [History] clonazePAM [Klonopin] 0.5 mg PO TID 08/08/16 [History] hydrOXYzine HCl [Hydroxyzine HCl] 50 mg PO TID 10/19/16 [History] Polyethylene Glycol 3350 [MiraLAX Powder Bulk 17.9 Oz] 1 scoop PO DAILY #510 gm 10/21/16 [Rx] 3 Allergy/AdvReac Type Severity Reaction Status Date / Time naproxen [From Aleve] AdvReac Hives Verified 04/29/17 17:20 ROS unobtainable: due to endotracheal tube All Systems PM: A 10-system review of systems was performed and is negative for pertinent findings except as documented above in the HPI. Review of systems: ROS 14 point review of systems reviewed as best as possible given presentation. Pertinent positive or negative as per HPI or otherwise reviewed as negative - Constitutional Vitals: Temp Pulse Resp BP Pulse Ox 100.3 F H 115 20 107/88 93 04/29/17 17:17 04/29/17 18:17 04/29/17 18:19 04/29/17 18:17 04/29/17 19:39 Exam: General - AAO x 3 Psych - Appropriate affect/speech. No agitation Eyes - JOE. Eye lids intact. No scleral icterus Heart - Sinus tachycardia. RRR. S1 and S2 present. No added HS/murmurs appreciated. No elevated JVD appreciated. Lung - Adequate air entry b/l, Rhonchi and crackles appreciated GI - Soft, non-tender. No hepatosplenomegaly/ascites. BS+ - No CVA/suprapubic tenderness or palpable bladder distension Skin - Intact. No rash/petechiae/ecchymosis. Warm extremities MSK - Joints with normal ROM. No joint swellings Internal Med - H&P Results - Labs CBC & Chem 7: 04/29/17 18:07 04/29/17 18:07
[2017-04-29] MEDS: Azithromycin 500 MG in D5% in Water 250 ML IVPB SCH (22:04)
[2017-04-29] MEDS: 0.9 % Sodium Chloride 1,000 ML IVC SCH (22:04)
[2017-04-29] MEDS: *HR* OxyCODONE/APAP 10/325 TABLET PO PRN (22:05)
[2017-04-29] MEDS: MethylPREDNISolone 40 MG/ML VIAL IVP SCH (22:05)
[2017-04-29] MEDS: clonazePAM 0.5 MG TABLET PO PRN (22:06)
[2017-04-29] MEDS: Ipratropium/Albuterol Neb 3 ML IH SCH (22:43)
[2017-04-30] MEDS: *HR* OxyCODONE/APAP 10/325 TABLET PO PRN ×3 (04:10→21:43)
[2017-04-30] MEDS: Ipratropium/Albuterol Neb 3 ML IH SCH ×4 (04:14→23:25)
[2017-04-30 05:52] LABS: Basophils % 0.1 %; Hematocrit 39.1 % (35.3-44.9); Hemoglobin 12.1 g/dL (11.5-15.4); Immature Granulocytes % 0.6 % (0-4); Lymphocytes # 0.6 K/mcL (0.6-4.6); Lymphocytes % 3.6 %; Mean Corpuscular HGB Conc 30.9 g/dL (31.6-35.5); Mean Corpuscular Hemoglobin 28.7 pg (28.0-33.3); Mean Corpuscular Volume 92.9 fL (83.0-100.0); Mean Platelet Volume 11.1 fL (9.4-12.4); Monocytes # 0.2 K/mcL (0.0-1.3); Monocytes % 1.1 %; Platelet Count 206 K/mcL (140-400); Red Blood Count 4.21 M/mcL (3.82-4.97); Red Cell Distribution Width 13.2 % (11.5-14.5); Segmented Neutrophils % 94.6 %
[2017-04-30] MEDS: *HR* Enoxaparin 40 MG/0.4 ML SYRINGE SQ SCH (06:02)
[2017-04-30] MEDS: 0.9 % Sodium Chloride 1,000 ML IVC SCH ×3 (06:02→21:46)
[2017-04-30] MEDS: Cefepime HCl 2,000 MG in Water for inj. (sterile) 10 ML IVPB SCH ×2 (06:03→17:35)
[2017-04-30 06:06] LABS: BUN/Creatinine Ratio 13 (6-26); Blood Urea Nitrogen 9 mg/dL (7-20); Calcium 8.5 mg/dL (8.6-10.8); Carbon Dioxide 24 mEq/L (19-29); Chloride 110 mEq/L (98-109); Glucose 210 mg/dL (70-99); Magnesium 1.8 mg/dL (1.6-2.6); Osmolality,Calculated 297 (280-300); Potassium 3.7 mEq/L (3.5-4.5); Sodium 141 mEq/L (136-145); eGFR For African Americans > 60 (> 60); eGFR For Non-African Americans > 60 (> 60)
[2017-04-30] MEDS ORDERED: NON-FORMULARY MEDICATION 1 EACH EACH (Mometasone/Formoterol [Dulera 100 Mcg/5 Mcg Inhaler] IH SCH (09:00)
[2017-04-30] MEDS: MethylPREDNISolone 40 MG/ML VIAL IVP SCH ×2 (10:10→21:45)
[2017-04-30] MEDS: GuaiFENesin Liq 200 MG/10 ML UDC PO PRN ×2 (10:11→21:39)
[2017-04-30] MEDS: Nicotine 14 MG PATCH.TD24 TD SCH (10:11)
[2017-04-30] MEDS: Mirtazapine 15 MG TABLET PO SCH (10:12)
--- NOTE | 2017-04-30 11:12 | Internal Med Progress Note ---
Date of Encounter: 04/30/17 Time of Encounter: 11:10 - Assessment and plan (1) Pneumonia Current Visit: Yes Status: Suspected Assessment and plan: Patient presenting with right-sided multifocal pneumonia. On cefepime and azithromycin. WBC count did go up today. Does have risk for MRSA although No recent hospitalization in the past 3 months. Did have pneumonia earlier this year with strep pneumoniae. She received Pneumovax after she recovered from that. Does continue to have cough. We will send sputum for culture. We will also check respiratory panel. Continue current antibiotics. Will add vancomycin. While we await cultures. Qualifiers: Pneumonia type: due to methicillin-resistant Staphylococcus aureus (MRSA) Laterality: right Lung location: unspecified part of lung Qualified Code(s) : J15.212 - Pneumonia due to Methicillin resistant Staphylococcus aureus (2) Acute exacerbation of chronic obstructive airways disease Current Visit: Yes Status: Acute Assessment and plan: Continue current management with bronchodilators, intravenous steroids and O2 supplementation. (3) Tobacco abuse Current Visit: No Status: Chronic (4) Bilateral pleural effusion Current Visit: Yes Status: Acute Assessment and plan: Bibasal pleural effusion. Could be related to pneumonia. Will get CT scan of the chest to better visualize the effusion and look for any loculations. (5) Sepsis Current Visit: Yes Status: Acute Assessment and plan: Sepsis present on admission. Lactic acid elevated today morning. Will continue IV hydration and recheck lactate levels. Follow culture results. Continue antibiotics. Qualifiers: Sepsis type: sepsis due to unspecified organism Qualified Code(s): A41.9 - Sepsis, unspecified organism (6) Acute respiratory failure with hypoxia Current Visit: Yes Status: Acute Assessment and plan: Due to COPD exacerbation and pneumonia. - Subjective Interval history: Patient is awake and alert. Feels better compared to yesterday but continues to have some cough along with wheezing. No fever reported. No nausea or vomiting. Complains of some right-sided chest pain with chest wall tenderness. - Constitutional Vitals: Temp Pulse Resp BP Pulse Ox 97.9 F 94 20 102/71 92 04/30/17 07:00 04/30/17 07:00 04/30/17 10:22 04/30/17 07:00 04/30/17 10:22 General appearance: Present: cooperative, A&O X 3, answers questions appropriately - Respiratory Respiratory exam: Present: prolonged expiratory phase, wheezes (Bilateral). Absent: accessory muscle use, rales, rhonchi - Cardiovascular Cardiovascular exam: Present: RRR, +S1, +S2. Absent: diastolic murmur, gallop, rubs, systolic murmur - GI/Abdominal GI/Abdominal exam: Present: normal bowel sounds, soft, no peritoneal signs. Absent: distended, tenderness - Extremities Exam Extremities exam: Present: warm, radial pulses palpable and symmetrical. Absent : calf tenderness, cyanotic, pedal edema - Neurological Exam Neurological exam: Present: alert, CN II-XII intact, oriented X3, no focal deficits. Absent: facial droop, speech deficit Internal Medicine: Result - Labs CBC & Chem 7: 04/30/17 05:31 04/30/17 05:31 Labs: Short CBC 04/30/17 Range/Units 05:31 WBC 15.8 H (4.3-11.1) K/mcL Hgb 12.1 D (11.5-15.4) g/dL Hct 39.1 (35.3-44.9) % Plt Count 206 (140-400) K/mcL Neutrophils # 15.0 H (1.6-8.9) K/mcL BMP 04/30/17 05:31 Sodium 141 Potassium 3.7 Chloride 110 H Carbon Dioxide 24 BUN 9 Creatinine 0.69 Glucose 210 H Calcium 8.5 L Consult Discharge Plan - Plan Referrals: Musa Ellsworth MD [Primary Care Provider] -
[2017-04-30] MEDS ORDERED: Vancomycin 750 MG in D5% in Water 250 ML IVPB SCH (12:00)
[2017-04-30] MEDS: Vancomycin 750 MG in D5% in Water 250 ML IVPB SCH (13:18)
[2017-04-30] MEDS: clonazePAM 0.5 MG TABLET PO PRN ×2 (13:19→22:53)
[2017-04-30] MEDS ORDERED: *HR* Dextrose 50 % in Water (Syg) 50 ML SYRINGE IVP PRN (13:43)
[2017-04-30] MEDS ORDERED: Dextrose Gel 15 GM PO PRN ×2 (13:43)
[2017-04-30] MEDS ORDERED: D5% in Water 1,000 ML IVC PRN (13:43)
[2017-04-30 15:30] LABS: Adenovirus Not Detected (Not Detect); Bordetella Pertussis Not Detected (Not Detect); Chlamydophila pneumoniae Not Detected (Not Detect); Coronavirus 229E Not Detected (Not Detect); Coronavirus HKU1 Not Detected (Not Detect); Coronavirus NL63 Not Detected (Not Detect); Coronavirus OC43 Not Detected (Not Detect); Human Metapneumovirus Not Detected (Not Detect); Human Rhinovirus/Enterovirus Not Detected (Not Detect); Influenza A Subtype 2009 H1 Not Detected (Not Detect); Influenza A Untypeable Not Detected (Not Detect); Influenza B Not Detected (Not Detect); Mycoplasma pneumoniae Not Detected (Not Detect); Parainfluenza Virus 1 Not Detected (Not Detect); Parainfluenza Virus 2 Not Detected (Not Detect); Parainfluenza Virus 3 Not Detected (Not Detect); Parainfluenza Virus 4 Not Detected (Not Detect); Respiratory Syncytial Virus Not Detected (Not Detect)
[2017-04-30] MEDS: Insulin LISPRO 300 UNITS/3 ML VIAL SQ SCH ×2 (17:34→21:47)
[2017-04-30] MEDS: Azithromycin 500 MG in D5% in Water 250 ML IVPB SCH (21:46)
[2017-05-01] MEDS: Vancomycin 750 MG in D5% in Water 250 ML IVPB SCH ×2 (00:34→11:27)
[2017-05-01 03:43] LABS: Hematocrit 36.6 % (35.3-44.9); Hemoglobin 11.3 g/dL (11.5-15.4); Mean Corpuscular HGB Conc 30.9 g/dL (31.6-35.5); Mean Corpuscular Hemoglobin 29.2 pg (28.0-33.3); Mean Corpuscular Volume 94.6 fL (83.0-100.0); Mean Platelet Volume 11.7 fL (9.4-12.4); Platelet Count 208 K/mcL (140-400); Red Blood Count 3.87 M/mcL (3.82-4.97); Red Cell Distribution Width 13.2 % (11.5-14.5)
[2017-05-01 03:59] LABS: BUN/Creatinine Ratio 17 (6-26); Blood Urea Nitrogen 12 mg/dL (7-20); Calcium 9.2 mg/dL (8.6-10.8); Carbon Dioxide 26 mEq/L (19-29); Chloride 112 mEq/L (98-109); Glucose 157 mg/dL (70-99); Osmolality,Calculated 301 (280-300); Potassium 4.2 mEq/L (3.5-4.5); Sodium 144 mEq/L (136-145); eGFR For African Americans > 60 (> 60); eGFR For Non-African Americans > 60 (> 60)
[2017-05-01 04:27] LABS: Lymphocytes # 1.3 K/mcL (0.6-4.6); Monocytes # 1.3 K/mcL (0.0-1.3); Neutrophils # 13.7 K/mcL (1.6-8.9)
[2017-05-01 04:30] LABS: Platelet Estimate Normal (Normal)
[2017-05-01] MEDS: Ipratropium/Albuterol Neb 3 ML IH SCH ×4 (04:32→22:26)
[2017-05-01] MEDS: *HR* OxyCODONE/APAP 10/325 TABLET PO PRN ×3 (04:40→18:08)
[2017-05-01] MEDS: Cefepime HCl 2,000 MG in Water for inj. (sterile) 10 ML IVPB SCH ×2 (06:23→16:39)
[2017-05-01] MEDS: *HR* Enoxaparin 40 MG/0.4 ML SYRINGE SQ SCH (06:24)
[2017-05-01] MEDS: clonazePAM 0.5 MG TABLET PO PRN ×2 (06:31→19:50)
[2017-05-01] MEDS: Mirtazapine 15 MG TABLET PO SCH (08:21)
[2017-05-01] MEDS: MethylPREDNISolone 40 MG/ML VIAL IVP SCH (08:21)
[2017-05-01] MEDS: Nicotine 14 MG PATCH.TD24 TD SCH (08:21)
[2017-05-01] MEDS: Insulin LISPRO 300 UNITS/3 ML VIAL SQ SCH ×4 (08:28→20:10)
--- NOTE | 2017-05-01 10:41 | Electrocardiograph Report ---
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
--- NOTE | 2017-05-01 17:38 | Internal Med Progress Note ---
Date of Encounter: 05/01/17 Time of Encounter: 11:00 - Assessment and plan (1) Acute exacerbation of chronic obstructive airways disease Current Visit: Yes Status: Acute Assessment and plan: Continue current management with bronchodilators, steroids and O2 supplementation. (2) Community acquired pneumonia Current Visit: Yes Status: Acute Assessment and plan: -Will continue IV antibiotics with cefepime and vancomycin Qualifiers: Laterality: right Lung location: unspecified part of lung Qualified Code( s): J18.9 - Pneumonia, unspecified organism (3) GERD (gastroesophageal reflux disease) Current Visit: No Status: Chronic Assessment and plan: -Continue PPI Qualifiers: Esophagitis presence: esophagitis presence not specified Qualified Code(s) : K21.9 - Gastro-esophageal reflux disease without esophagitis (4) DVT prophylaxis Current Visit: No Status: Acute Assessment and plan: -Lovenox subcutaneous - Subjective Interval history: Patient still requiring supplemental oxygenation with increased leukocytosis. - Constitutional Vitals: Temp Pulse Resp BP Pulse Ox 97.8 F 74 14 142/83 91 05/01/17 14:38 05/01/17 14:38 05/01/17 16:06 05/01/17 14:38 05/01/17 16:06 General appearance: Present: cooperative, A&O X 3, answers questions appropriately Internal Medicine: Result - Labs CBC & Chem 7: 05/01/17 03:06 05/01/17 03:06 Labs: Short CBC 05/01/17 Range/Units 03:06 WBC 16.3 H (4.3-11.1) K/mcL Hgb 11.3 L (11.5-15.4) g/dL Hct 36.6 (35.3-44.9) % Plt Count 208 (140-400) K/mcL Neutrophils # 13.7 H (1.6-8.9) K/mcL BMP 05/01/17 03:06 Sodium 144 Potassium 4.2 Chloride 112 H Carbon Dioxide 26 BUN 12 Creatinine 0.72 Glucose 157 H Calcium 9.2 - Impressions Impressions Echocardiogram 04/30/17 11:21 Impressions: LVEF 60-65%. Normal LV chamber size, wall thickness and function. Indeterminate diastolic function. Normal right ventricular structure and function. Mild mitral regurgitation. Mild pulmonary hypertension. Left Ventricular Wall Motion: Rest Echo Findings All wall segments showed normal motion. Findings: Study Quality * Technically adequate exam. ECG Findings * Sinus tachycardia. Left Ventricle * LVEF 60-65%. * Normal LV chamber size, wall thickness and function. * Indeterminate diastolic function. Right Ventricle * Normal right ventricular structure and function. Left Atrium * Moderately dilated left atrium. Right Atrium * Normal right atrial size. Aortic Valve * Trileaflet aortic valve with normal function. * No aortic stenosis. * No aortic regurgitation. Mitral Valve * Normal mitral valve structure. * Mild mitral regurgitation. * No mitral stenosis. Tricuspid Valve * Normal tricuspid valve structure and function. * Trace tricuspid regurgitation. * Mild pulmonary hypertension. Pulmonic Valve * Normal pulmonic valve structure and function. * No pulmonic regurgitation. Aorta * Normally sized aortic root. Pericardium * The pericardium appears normal. IVC * Normal IVC dimensions and inspiratory collapse. Pulmonary Artery * Normal visualized portions of the main pulmonary artery. Consult Discharge Plan - Plan Referrals: Musa Ellsworth MD [Primary Care Provider] -
[2017-05-01] MEDS: GuaiFENesin Liq 200 MG/10 ML UDC PO PRN (20:09)
[2017-05-02] MEDS: *HR* OxyCODONE/APAP 10/325 TABLET PO PRN ×4 (00:49→23:45)
[2017-05-02] MEDS: Vancomycin 1,000 MG in D5% in Water 250 ML IVPB SCH ×3 (00:49→23:44)
[2017-05-02 04:16] LABS: Basophils % 0.2 %; Eosinophils % 0.1 %; Hematocrit 32.2 % (35.3-44.9); Hemoglobin 10.2 g/dL (11.5-15.4); Lymphocytes # 2.5 K/mcL (0.6-4.6); Mean Corpuscular HGB Conc 31.7 g/dL (31.6-35.5); Mean Corpuscular Hemoglobin 29.7 pg (28.0-33.3); Mean Corpuscular Volume 93.6 fL (83.0-100.0); Mean Platelet Volume 11.1 fL (9.4-12.4); Monocytes # 0.7 K/mcL (0.0-1.3); Monocytes % 4.9 %; Neutrophils # 10.7 K/mcL (1.6-8.9); Platelet Count 196 K/mcL (140-400); Red Blood Count 3.44 M/mcL (3.82-4.97); Red Cell Distribution Width 13.5 % (11.5-14.5); Segmented Neutrophils % 75.8 %
[2017-05-02 04:37] LABS: BUN/Creatinine Ratio 21 (6-26); Blood Urea Nitrogen 13 mg/dL (6-20); Calcium 8.9 mg/dL (8.6-10.3); Carbon Dioxide 29 mEq/L (23-29); Chloride 110 mEq/L (98-107); Glucose 92 mg/dL (70-105); Magnesium 1.8 mg/dL (1.6-2.6); Osmolality,Calculated 296 (280-300); Potassium 3.5 mEq/L (3.5-5.1); Sodium 143 mEq/L (136-145); eGFR For African Americans > 60 (> 60); eGFR For Non-African Americans > 60 (> 60)
[2017-05-02] MEDS: Ipratropium/Albuterol Neb 3 ML IH SCH ×4 (04:46→23:39)
[2017-05-02] MEDS: Cefepime HCl 2,000 MG in Water for inj. (sterile) 10 ML IVPB SCH ×2 (06:37→17:39)
[2017-05-02] MEDS: *HR* Enoxaparin 40 MG/0.4 ML SYRINGE SQ SCH (06:38)
[2017-05-02 07:51] LABS: Mycoplasma pneumoniae IgG 0.23 U/L (<=0.09)
[2017-05-02] MEDS: Insulin LISPRO 300 UNITS/3 ML VIAL SQ SCH ×4 (08:16→20:59)
[2017-05-02] MEDS: predniSONE 20 MG TABLET PO SCH (08:18)
[2017-05-02] MEDS: Mirtazapine 15 MG TABLET PO SCH (08:18)
[2017-05-02] MEDS: Nicotine 14 MG PATCH.TD24 TD SCH (08:19)
[2017-05-02] MEDS: clonazePAM 0.5 MG TABLET PO PRN ×2 (08:20→23:44)
[2017-05-02] MEDS: GuaiFENesin Liq 200 MG/10 ML UDC PO PRN (10:49)
[2017-05-02] MEDS: GuaiFENesin/Dextromethorphan TABLET PO SCH ×2 (12:16→20:58)
--- NOTE | 2017-05-02 18:55 | Internal Med Progress Note ---
Date of Encounter: 05/02/17 Time of Encounter: 11:00 - Assessment and plan (1) Community acquired pneumonia Current Visit: Yes Status: Acute Assessment and plan: -Sputum cultures positive for MRSA -Will continue IV antibiotics with cefepime and vancomycin Qualifiers: Laterality: right Lung location: unspecified part of lung Qualified Code( s): J18.9 - Pneumonia, unspecified organism (2) Acute exacerbation of chronic obstructive airways disease Current Visit: Yes Status: Acute Assessment and plan: Continue current management with bronchodilators, steroids and O2 supplementation. (3) GERD (gastroesophageal reflux disease) Current Visit: No Status: Chronic Assessment and plan: -Continue PPI Qualifiers: Esophagitis presence: esophagitis presence not specified Qualified Code(s) : K21.9 - Gastro-esophageal reflux disease without esophagitis (4) DVT prophylaxis Current Visit: No Status: Acute Assessment and plan: -Lovenox subcutaneous - Subjective Interval history: Patient still requiring supplemental oxygenation. Sputum cultures positive for MRSA - Constitutional Vitals: Temp Pulse Resp BP Pulse Ox 98.1 F 61 110 133/92 93 05/02/17 16:23 05/02/17 16:16 05/02/17 16:23 05/02/17 16:23 05/02/17 16:23 General appearance: Present: cooperative, A&O X 3, answers questions appropriately - Respiratory Respiratory exam: Present: CTAB. Absent: accessory muscle use, rales, rhonchi, wheezes - Cardiovascular Cardiovascular exam: Present: RRR, +S1, +S2. Absent: diastolic murmur, gallop, rubs, systolic murmur Internal Medicine: Result - Labs CBC & Chem 7: 05/02/17 03:59 05/02/17 03:59 Labs: Short CBC 05/02/17 Range/Units 03:59 WBC 14.1 H (4.3-11.1) K/mcL Hgb 10.2 L (11.5-15.4) g/dL Hct 32.2 L (35.3-44.9) % Plt Count 196 (140-400) K/mcL Neutrophils # 10.7 H (1.6-8.9) K/mcL BMP 05/02/17 03:59 Sodium 143 Potassium 3.5 Chloride 110 H Carbon Dioxide 29 BUN 13 Creatinine 0.63 Glucose 92 Calcium 8.9 Consult Discharge Plan - Plan Referrals: Musa Ellsworth MD [Primary Care Provider] -
[2017-05-03] MEDS: Ipratropium/Albuterol Neb 3 ML IH SCH ×4 (05:10→22:56)
[2017-05-03] MEDS: *HR* Enoxaparin 40 MG/0.4 ML SYRINGE SQ SCH (06:14)
[2017-05-03] MEDS: Cefepime HCl 2,000 MG in Water for inj. (sterile) 10 ML IVPB SCH (06:14)
[2017-05-03] MEDS: *HR* OxyCODONE/APAP 10/325 TABLET PO PRN ×3 (06:15→19:04)
[2017-05-03] MEDS: Nicotine 14 MG PATCH.TD24 TD SCH (08:19)
[2017-05-03] MEDS: predniSONE 20 MG TABLET PO SCH (08:19)
[2017-05-03] MEDS: GuaiFENesin/Dextromethorphan TABLET PO SCH ×2 (08:19→20:46)
[2017-05-03] MEDS: clonazePAM 0.5 MG TABLET PO PRN (08:19)
[2017-05-03] MEDS: Insulin LISPRO 300 UNITS/3 ML VIAL SQ SCH ×3 (08:19→20:47)
[2017-05-03] MEDS: Mirtazapine 15 MG TABLET PO SCH (08:19)
[2017-05-03 12:07] LABS: Basophils # 0.1 K/mcL (0.0-0.2); Basophils % 0.6 %; Eosinophils % 0.3 %; Hematocrit 36.5 % (35.3-44.9); Hemoglobin 11.5 g/dL (11.5-15.4); Immature Granulocytes % 2.2 % (0-4); Lymphocytes # 1.5 K/mcL (0.6-4.6); Lymphocytes % 12.8 %; Mean Corpuscular HGB Conc 31.5 g/dL (31.6-35.5); Mean Corpuscular Hemoglobin 29.3 pg (28.0-33.3); Mean Corpuscular Volume 92.9 fL (83.0-100.0); Mean Platelet Volume 10.7 fL (9.4-12.4); Monocytes # 0.4 K/mcL (0.0-1.3); Monocytes % 3.4 %; Neutrophils # 9.6 K/mcL (1.6-8.9); Platelet Count 215 K/mcL (140-400); Red Blood Count 3.93 M/mcL (3.82-4.97); Red Cell Distribution Width 13.4 % (11.5-14.5); Segmented Neutrophils % 80.7 %
[2017-05-03 12:14] LABS: BUN/Creatinine Ratio 14 (6-26); Blood Urea Nitrogen 9 mg/dL (6-20); Calcium 9.1 mg/dL (8.6-10.3); Carbon Dioxide 31 mEq/L (23-29); Chloride 107 mEq/L (98-107); Glucose 132 mg/dL (70-105); Osmolality,Calculated 297 (280-300); Potassium 3.8 mEq/L (3.5-5.1); Sodium 143 mEq/L (136-145); eGFR For African Americans > 60 (> 60); eGFR For Non-African Americans > 60 (> 60)
[2017-05-03] MEDS ORDERED: Azithromycin 500 MG in D5% in Water 250 ML IVPB SCH (15:00)
[2017-05-03] MEDS: Vancomycin 1,250 MG in D5% in Water 250 ML IVPB SCH (15:36)
--- NOTE | 2017-05-03 18:47 | Internal Med Progress Note ---
Date of Encounter: 05/03/17 Time of Encounter: 11:00 - Assessment and plan (1) Community acquired pneumonia Current Visit: Yes Status: Acute Assessment and plan: -Sputum cultures positive for MRSA -Will continue IV antibiotics with azithromycin (continue cefepime) and vancomycin Qualifiers: Laterality: right Lung location: unspecified part of lung Qualified Code( s): J18.9 - Pneumonia, unspecified organism (2) Acute exacerbation of chronic obstructive airways disease Current Visit: Yes Status: Acute Assessment and plan: Continue current management with bronchodilators, steroids and O2 supplementation. (3) GERD (gastroesophageal reflux disease) Current Visit: No Status: Chronic Assessment and plan: -Continue PPI Qualifiers: Esophagitis presence: esophagitis presence not specified Qualified Code(s) : K21.9 - Gastro-esophageal reflux disease without esophagitis (4) DVT prophylaxis Current Visit: No Status: Acute Assessment and plan: -Lovenox subcutaneous - Subjective Interval history: Patient still requiring supplemental oxygenation. Sputum cultures positive for MRSA - Constitutional Vitals: Temp Pulse Resp BP Pulse Ox 98.1 F 99 18 137/91 97 05/03/17 16:23 05/03/17 16:23 05/03/17 16:23 05/03/17 16:23 05/03/17 16:23 General appearance: Present: cooperative, A&O X 3, answers questions appropriately - Respiratory Respiratory exam: Present: CTAB. Absent: accessory muscle use, rales, rhonchi, wheezes - Cardiovascular Cardiovascular exam: Present: RRR, +S1, +S2. Absent: diastolic murmur, gallop, rubs, systolic murmur Internal Medicine: Result - Labs CBC & Chem 7: 05/03/17 11:47 05/03/17 11:47 Labs: Short CBC 05/03/17 Range/Units 11:47 WBC 11.9 H (4.3-11.1) K/mcL Hgb 11.5 (11.5-15.4) g/dL Hct 36.5 (35.3-44.9) % Plt Count 215 (140-400) K/mcL Neutrophils # 9.6 H (1.6-8.9) K/mcL BMP 05/03/17 11:47 Sodium 143 Potassium 3.8 Chloride 107 Carbon Dioxide 31 H BUN 9 Creatinine 0.63 Glucose 132 H Calcium 9.1 Consult Discharge Plan - Plan Referrals: Okolie,Vigil, MD [Primary Care Provider] -
[2017-05-03] MEDS: Sennosides/Docusate Sodium TABLET PO SCH (20:45)
[2017-05-04] MEDS: *HR* OxyCODONE/APAP 10/325 TABLET PO PRN ×4 (01:44→21:36)
[2017-05-04] MEDS: clonazePAM 0.5 MG TABLET PO PRN ×2 (01:44→18:09)
[2017-05-04] MEDS: Ipratropium/Albuterol Neb 3 ML IH SCH ×4 (03:53→23:20)
[2017-05-04] MEDS: Vancomycin 1,250 MG in D5% in Water 250 ML IVPB SCH ×2 (04:20→18:19)
[2017-05-04] MEDS: *HR* Enoxaparin 40 MG/0.4 ML SYRINGE SQ SCH (06:04)
[2017-05-04] MEDS: Insulin LISPRO 300 UNITS/3 ML VIAL SQ SCH ×5 (09:07→21:35)
[2017-05-04] MEDS: Sennosides/Docusate Sodium TABLET PO SCH ×2 (09:15→21:37)
[2017-05-04] MEDS: GuaiFENesin/Dextromethorphan TABLET PO SCH ×2 (09:15→21:36)
[2017-05-04] MEDS: Mirtazapine 15 MG TABLET PO SCH (09:15)
[2017-05-04] MEDS: Nicotine 14 MG PATCH.TD24 TD SCH (09:16)
[2017-05-04] MEDS: predniSONE 20 MG TABLET PO SCH (09:16)
[2017-05-04 09:30] LABS: Basophils # 0.1 K/mcL (0.0-0.2); Basophils % 0.8 %; Eosinophils # 0.1 K/mcL (0.0-0.6); Hematocrit 36.5 % (35.3-44.9); Hemoglobin 11.5 g/dL (11.5-15.4); Immature Granulocytes % 4.9 % (0-4); Lymphocytes # 3.7 K/mcL (0.6-4.6); Lymphocytes % 36.5 %; Mean Corpuscular HGB Conc 31.5 g/dL (31.6-35.5); Mean Corpuscular Hemoglobin 29.2 pg (28.0-33.3); Mean Corpuscular Volume 92.6 fL (83.0-100.0); Mean Platelet Volume 10.4 fL (9.4-12.4); Monocytes # 0.5 K/mcL (0.0-1.3); Monocytes % 4.9 %; Neutrophils # 5.2 K/mcL (1.6-8.9); Nucleated Red Blood Cells 0.4 /100 WBC (0); Platelet Count 244 K/mcL (140-400); Red Blood Count 3.94 M/mcL (3.82-4.97); Red Cell Distribution Width 13.4 % (11.5-14.5); Segmented Neutrophils % 51.9 %
[2017-05-04 09:43] LABS: BUN/Creatinine Ratio 22 (6-26); Blood Urea Nitrogen 11 mg/dL (6-20); Calcium 8.9 mg/dL (8.6-10.3); Carbon Dioxide 34 mEq/L (23-29); Chloride 104 mEq/L (98-107); Glucose 123 mg/dL (70-105); Osmolality,Calculated 299 (280-300); Potassium 2.9 mEq/L (3.5-5.1); Sodium 144 mEq/L (136-145); eGFR For African Americans > 60 (> 60); eGFR For Non-African Americans > 60 (> 60)
[2017-05-04] MEDS ORDERED: Potassium Chloride 40 MEQ, Lidocaine 1% 2 ML in D5% in Water 500 ML IVPB ONE (13:17)
--- NOTE | 2017-05-04 17:08 | Internal Med Progress Note ---
Date of Encounter: 05/04/17 Time of Encounter: 11:00 - Assessment and plan (1) Community acquired pneumonia Current Visit: Yes Status: Acute Assessment and plan: -Sputum cultures positive for MRSA -Patient still requiring oxygen supplementation -Will continue IV antibiotics with azithromycin and vancomycin Qualifiers: Laterality: right Lung location: unspecified part of lung Qualified Code( s): J18.9 - Pneumonia, unspecified organism (2) Acute exacerbation of chronic obstructive airways disease Current Visit: Yes Status: Acute Assessment and plan: -Continue current management with bronchodilators, steroids and O2 supplementation. (3) Acute respiratory failure with hypoxia Current Visit: Yes Status: Acute Assessment and plan: -Due to COPD exacerbation and pneumonia. -Continue oxygen supplementation as needed. (4) GERD (gastroesophageal reflux disease) Current Visit: No Status: Chronic Assessment and plan: -Continue PPI Qualifiers: Esophagitis presence: esophagitis presence not specified Qualified Code(s) : K21.9 - Gastro-esophageal reflux disease without esophagitis (5) DVT prophylaxis Current Visit: No Status: Acute Assessment and plan: -Lovenox subcutaneous - Subjective Interval history: Patient still requiring supplemental oxygenation but reports that shortness of breath is improving Sputum cultures positive for MRSA Patient also now with hypokalemia - Constitutional Vitals: Temp Pulse Resp BP Pulse Ox 97.8 F 89 14 141/92 95 05/04/17 15:04 05/04/17 15:04 05/04/17 15:04 05/04/17 15:04 05/04/17 15:04 General appearance: Present: cooperative, A&O X 3, answers questions appropriately - Respiratory Respiratory exam: Present: CTAB. Absent: accessory muscle use, rales, rhonchi, wheezes - Cardiovascular Cardiovascular exam: Present: RRR, +S1, +S2. Absent: diastolic murmur, gallop, rubs, systolic murmur Internal Medicine: Result - Labs CBC & Chem 7: 05/04/17 09:15 05/04/17 09:15 Labs: Short CBC 05/04/17 Range/Units 09:15 WBC 10.1 (4.3-11.1) K/mcL Hgb 11.5 (11.5-15.4) g/dL Hct 36.5 (35.3-44.9) % Plt Count 244 (140-400) K/mcL Neutrophils # 5.2 (1.6-8.9) K/mcL BMP 05/04/17 09:15 Sodium 144 Potassium 2.9 L Chloride 104 Carbon Dioxide 34 H BUN 11 Creatinine 0.50 L Glucose 123 H Calcium 8.9 Consult Discharge Plan - Plan Referrals: Musa Ellsworth MD [Primary Care Provider] -
[2017-05-04] MEDS: Budesonide/Formoterol 160/4.5 MDI IH SCH (23:20)
[2017-05-05] MEDS: Azithromycin 500 MG in D5% in Water 250 ML IVPB SCH ×2 (00:01→22:20)
[2017-05-05] MEDS: Vancomycin 1,250 MG in D5% in Water 250 ML IVPB SCH ×3 (03:24→17:46)
[2017-05-05] MEDS: *HR* OxyCODONE/APAP 10/325 TABLET PO PRN ×3 (04:02→22:20)
[2017-05-05 04:08] LABS: Basophils # 0.1 K/mcL (0.0-0.2); Basophils % 0.5 %; Eosinophils # 0.1 K/mcL (0.0-0.6); Eosinophils % 0.6 %; Hematocrit 32.9 % (35.3-44.9); Hemoglobin 10.4 g/dL (11.5-15.4); Immature Granulocytes % 5.3 % (0-4); Lymphocytes # 2.9 K/mcL (0.6-4.6); Lymphocytes % 26.8 %; Mean Corpuscular HGB Conc 31.6 g/dL (31.6-35.5); Mean Corpuscular Hemoglobin 29.1 pg (28.0-33.3); Mean Corpuscular Volume 91.9 fL (83.0-100.0); Mean Platelet Volume 10.5 fL (9.4-12.4); Monocytes # 0.8 K/mcL (0.0-1.3); Monocytes % 7.3 %; Neutrophils # 6.4 K/mcL (1.6-8.9); Nucleated Red Blood Cells 0.3 /100 WBC (0); Platelet Count 234 K/mcL (140-400); Red Blood Count 3.58 M/mcL (3.82-4.97); Red Cell Distribution Width 13.2 % (11.5-14.5); Segmented Neutrophils % 59.5 %
[2017-05-05] MEDS: Ipratropium/Albuterol Neb 3 ML IH SCH ×4 (04:18→22:00)
[2017-05-05 04:20] LABS: BUN/Creatinine Ratio 29 (6-26); Blood Urea Nitrogen 14 mg/dL (6-20); Calcium 8.8 mg/dL (8.6-10.3); Carbon Dioxide 32 mEq/L (23-29); Chloride 102 mEq/L (98-107); Glucose 92 mg/dL (70-105); Osmolality,Calculated 290 (280-300); Potassium 3.4 mEq/L (3.5-5.1); Sodium 140 mEq/L (136-145); eGFR For African Americans > 60 (> 60); eGFR For Non-African Americans > 60 (> 60)
[2017-05-05] MEDS: *HR* Enoxaparin 40 MG/0.4 ML SYRINGE SQ SCH (04:42)
[2017-05-05] MEDS: clonazePAM 0.5 MG TABLET PO PRN ×2 (04:42→12:36)
[2017-05-05 05:02] LABS: Platelet Estimate Normal (Normal)
[2017-05-05] MEDS: Mirtazapine 15 MG TABLET PO SCH (08:35)
[2017-05-05] MEDS: predniSONE 20 MG TABLET PO SCH (08:36)
[2017-05-05] MEDS: Sennosides/Docusate Sodium TABLET PO SCH ×2 (08:37→22:19)
[2017-05-05] MEDS: Nicotine 14 MG PATCH.TD24 TD SCH (08:37)
[2017-05-05] MEDS: Insulin LISPRO 300 UNITS/3 ML VIAL SQ SCH ×4 (08:40→20:46)
[2017-05-05] MEDS: GuaiFENesin/Dextromethorphan TABLET PO SCH ×2 (08:41→22:19)
[2017-05-05] MEDS: Budesonide/Formoterol 160/4.5 MDI IH SCH ×2 (11:12→22:01)
[2017-05-05] MEDS ORDERED: Aminoglycoside Consult 1 EACH MC ONE (15:29)
--- NOTE | 2017-05-05 16:49 | Internal Med Progress Note ---
Date of Encounter: 05/05/17 Time of Encounter: 11:00 - Assessment and plan (1) Community acquired pneumonia Current Visit: Yes Status: Acute Assessment and plan: -Sputum cultures positive for MRSA -Patient still requiring oxygen supplementation -Will continue IV antibiotics with azithromycin and vancomycin Qualifiers: Laterality: right Lung location: unspecified part of lung Qualified Code( s): J18.9 - Pneumonia, unspecified organism (2) Acute exacerbation of chronic obstructive airways disease Current Visit: Yes Status: Acute Assessment and plan: -Continue current management with bronchodilators, steroids and O2 supplementation. (3) Acute respiratory failure with hypoxia Current Visit: Yes Status: Acute Assessment and plan: -Due to COPD exacerbation and pneumonia. -Continue oxygen supplementation as needed. (4) GERD (gastroesophageal reflux disease) Current Visit: No Status: Chronic Qualifiers: Esophagitis presence: esophagitis presence not specified Qualified Code(s) : K21.9 - Gastro-esophageal reflux disease without esophagitis (5) DVT prophylaxis Current Visit: No Status: Acute - Subjective Interval history: Patient still requiring supplemental oxygenation but her shortness of breath continues to improve. Sputum cultures positive for MRSA Patient with hypokalemia - Constitutional Vitals: Temp Pulse Resp BP Pulse Ox 98.5 F 97 18 141/89 96 05/05/17 15:22 05/05/17 15:22 05/05/17 15:54 05/05/17 15:22 05/05/17 15:54 General appearance: Present: cooperative, A&O X 3, answers questions appropriately - Respiratory Respiratory exam: Present: CTAB. Absent: accessory muscle use, rales, rhonchi, wheezes - Cardiovascular Cardiovascular exam: Present: RRR, +S1, +S2. Absent: diastolic murmur, gallop, rubs, systolic murmur Internal Medicine: Result - Labs CBC & Chem 7: 05/05/17 03:14 05/05/17 03:14 Labs: Short CBC 05/05/17 Range/Units 03:14 WBC 10.7 (4.3-11.1) K/mcL Hgb 10.4 L (11.5-15.4) g/dL Hct 32.9 L (35.3-44.9) % Plt Count 234 (140-400) K/mcL Neutrophils # 6.4 (1.6-8.9) K/mcL BMP 05/04/17 05/05/17 20:47 03:14 Sodium 140 Potassium 3.8 D 3.4 L Chloride 102 Carbon Dioxide 32 H BUN 14 Creatinine 0.49 L Glucose 92 Calcium 8.8 Consult Discharge Plan - Plan Referrals: Musa Ellsworth MD [Primary Care Provider] -
[2017-05-06] MEDS: Vancomycin 1,250 MG in D5% in Water 250 ML IVPB SCH (03:59)
[2017-05-06] MEDS: *HR* Enoxaparin 40 MG/0.4 ML SYRINGE SQ SCH (05:03)
[2017-05-06] MEDS: *HR* OxyCODONE/APAP 10/325 TABLET PO PRN ×2 (05:03→12:06)
[2017-05-06] MEDS: Ipratropium/Albuterol Neb 3 ML IH SCH ×2 (05:20→11:10)
[2017-05-06 10:08] VITALS: BP 160/94
[2017-05-06] MEDS: Mirtazapine 15 MG TABLET PO SCH (10:14)
[2017-05-06] MEDS: predniSONE 20 MG TABLET PO SCH (10:14)
[2017-05-06] MEDS: Insulin LISPRO 300 UNITS/3 ML VIAL SQ SCH ×2 (10:14→12:38)
[2017-05-06] MEDS: clonazePAM 0.5 MG TABLET PO PRN (10:14)
[2017-05-06] MEDS: Sennosides/Docusate Sodium TABLET PO SCH (10:15)
[2017-05-06] MEDS: Nicotine 14 MG PATCH.TD24 TD SCH (10:16)
[2017-05-06] MEDS: GuaiFENesin/Dextromethorphan TABLET PO SCH (10:18)
[2017-05-06] MEDS: Budesonide/Formoterol 160/4.5 MDI IH SCH (11:10)
--- NOTE | 2017-05-06 13:01 | Discharge Summary ---
Date of Encounter: 05/06/17 Time of Encounter: 09:00 - Discharge Diagnosis (1) Community acquired pneumonia Priority: Primary Status: Acute Qualifiers: Laterality: right Lung location: unspecified part of lung Qualified Code( s): J18.9 - Pneumonia, unspecified organism (2) Acute exacerbation of chronic obstructive airways disease Priority: Primary Status: Acute (3) Acute respiratory failure with hypoxia Priority: Primary Status: Acute (4) GERD (gastroesophageal reflux disease) Priority: Secondary Status: Chronic Qualifiers: Esophagitis presence: esophagitis presence not specified Qualified Code(s) : K21.9 - Gastro-esophageal reflux disease without esophagitis - Discharge Medications Prescriptions: Linezolid [Zyvox] 600 mg PO BID 10 Days #20 tablet Nicotine Patch [Nicoderm] 14 mg TD DAILY #30 patch.[id number] predniSONE [PredniSONE] 40 mg PO DAILY 5 Days #10 tablet Home Medications: Albuterol Sulfate [Albuterol Inhaler] 1 - 2 puff IH Q4-6H PRN 08/08/16 [History] Mometasone/Formoterol [Dulera 100 Mcg/5 Mcg Inhaler] 1 puff IH DAILY 08/08/16 [ History] Omeprazole [PriLOSEC] 20 mg PO DAILY 08/08/16 [History] OxyCODONE/APAP 10/325 [Percocet 10/325 MG] 1 each PO Q6H PRN 08/08/16 [History] Prazosin HCl [Minipress] 2 mg PO DAILY 08/08/16 [History] clonazePAM [Klonopin] 1 mg PO TID 04/30/17 [History] Linezolid [Zyvox] 600 mg PO BID 10 Days #20 tablet 05/06/17 [Rx] Nicotine Patch [Nicoderm] 14 mg TD DAILY #30 patch.td24 05/06/17 [Rx] predniSONE [PredniSONE] 40 mg PO DAILY 5 Days #10 tablet 05/06/17 [Rx] Allergies/Adverse Reactions: 3 Allergy/AdvReac Type Severity Reaction Status Date / Time naproxen [From Aleve] AdvReac Hives Verified 04/29/17 17:20 Date of admission: 04/29/17 19:55 Primary care physician: Musa Ellsworth MD - Patient Status Disposition: Home, Self-Care Condition: Fair - Discharge Instructions Follow Up With: Musa Ellsworth MD [Primary Care Provider] - Hospital course: Patient is a 51-year-old female with past medical history significant for COPD and a smoker who presented to the ER on 04/29/17 due to shortness of breath. In the ER, chest x-ray showed multifocal right-sided airspace disease most consistent with pneumonia. Patient was also found to be an acute hypoxic respiratory failure. Patient was admitted to the medical surgical floor for management of acute hypoxic respiratory failure secondary to community-acquired pneumonia. During patients hospital stay, her shortness of breath improved with treatment with IV antibiotics (azithromycin and vancomycin); sputum cultures positive for MRSA. Patient still requiring oxygen supplementation. Patient will be discharged to complete a ten-day course of Zyvox and five-day course of prednisone. Patient will also discharge patient with a nicotine patch. Patient will follow-up with primary care provider for management of acute hypoxic respiratory failure secondary to MRSA pneumonia. - Time Spent with Patient Total time spent providing and/or coordinating discharge services: Less than 30 minutes - Constitutional Vitals: Temp Pulse Resp BP Pulse Ox 98.5 F 67 16 160/94 93 05/05/17 15:22 05/06/17 07:00 05/06/17 11:10 05/06/17 07:00 05/06/17 11:10 General appearance: Present: cooperative, A&O X 3, answers questions appropriately - Respiratory Respiratory exam: Present: CTAB. Absent: accessory muscle use, rales, rhonchi, wheezes - Cardiovascular Cardiovascular exam: Present: RRR, +S1, +S2. Absent: diastolic murmur, gallop, rubs, systolic murmur
== END 2017-05-06 15:30 | disposition home or self-care (01) | DRG 720 ==
LOC: 2NENU 16:46 → EMEROO 16:46 → SUATTDRO 19:55 → 2NENU 20:20
PROVIDERS: ADMIT Internal Medicine Hematology & Oncology; ATTEND Hospitalist